=== PATIENT | male | born 1970 | race Caucasian/White ===

== ENCOUNTER 2020-06-27 08:35 | Emergency (ER) | payer OTHER, SELFPAY ==
--- NOTE | ~2020-06-27 | XR_ITS ---
EXAMINATION: [id number]_[id number]_CR EXAM DATE: 06/27/2020 09:12 INDICATION: Right rib pain after sneeze one week ago. Pain is persisting. Initial encounter. TECHNIQUE: Frontal projection of the upper right ribs, frontal projection of the lower right ribs, ob lique projection of the right ribs, frontal chest x-ray(s) for interpretation. There is no prior zoila dy for comparison. FINDINGS: Right 5th and 6th rib fractures posterolaterally appear to be old. There are no displaced a cute right rib fractures identified. There are no osteoblastic or osteolytic lesions identified. The re is no soft tissue abnormality seen. Linear left-sided basilar scarring. No confluent consolidation , pneumothorax or pleural effusion suspected. Consider educating patient that even if there is a radiographically occult nondisplaced rib fracture, there is no specific treatment other than to refrain from activity that prevents healing. IMPRESSION: No displaced right rib fractures. Reviewed, dictated and finalized at location A. MANAGER
[2020-06-27 08:44] VITALS: BP 160/95; PULSE 86; RESP 18; TEMP 36.3; O2SAT 100
[2020-06-27 10:28] LABS: Basophils Percent Auto 0.6 % (0.2-1.2); Eosinophils Absolute Auto 0.1 K/mm3 (0-0.3); Eosinophils Percent Auto 1.7 % (0-4.4); Hematocrit 44.4 % (42.0-52.0); Hemoglobin 15.2 g/dL (14.0-18.0); Immature Granulocyte Absolute 0.04 K/mm3 (0.00-0.031); Immature Granulocyte Percent A 0.6 % (0-0.5); Lymphocytes Absolute Auto 1.78 K/mm3 (0.9-3.2); Lymphocytes Percent Auto 27.7 % (18.3-44.2); Mean Corpuscular HGB Conc 34.2 g/dl (32-36); Mean Corpuscular Volume 87.6 fl (80-100); Mean Platelet Volume 10.8 fl (7.4-10.4); Monocytes Absolute Auto 0.5 K/mm3 (0.1-0.6); Monocytes Percent Auto 8.3 % (2.6-8.5); Neutrophils Absolute Auto 3.9 K/mm3 (1.3-6.7); Neutrophils Percent Auto 61.1 % (45.5-73.1); Platelet Count Result 258 k/mm3 (150-375); Red Blood Count 5.07 M/mm3 (4.6-6.20); Red Cell Distribution Width 13.5 % (11.5-14.5); White Blood Count 6.4 K/mm3 (4.5-10.0)
[2020-06-27] MEDS: KETOROLAC 30 MG/ML VIAL (*BKC) IV PUSH (10:28)
[2020-06-27 10:40] LABS: Alanine Aminotransferase 27 U/L (4-50); Albumin Level 4.3 g/dL (3.5-5.1); Alkaline Phosphatase 67 U/L (38-126); Anion Gap 7 mmol/L (8-16); Aspartate Amino Transferase 25 U/L (17-59); Bilirubin,Total 0.5 mg/dL (0.2-1.3); Blood Urea Nitrogen 16 mg/dL (9-20); Calcium 9.6 mg/dL (8.4-10.2); Carbon Dioxide 25 mmol/L (22-30); Chloride 106 mmol/L (98-107); Estimated CRCL calculation 104 ml/min; Estimated Glomerular Filt Rate > 60; Glucose 105 mg/dL (75-110); Lipase 55 U/L (23-300); Potassium 4.4 mmol/L (3.4-5.0); Sodium 138 mmol/L (137-145)
[2020-06-27 10:43] LABS: D Dimer 0.27 ug/mL (<0.48)
[2020-06-27 10:44] LABS: Add Urine Microscopic? NO; Appearance Urine Clear (Clear); Bilirubin Urine Negative (Negative); Blood Urine Negative (Negative); Color Urine Straw (Yellow); Glucose Urine UA Negative (Negative); Ketones Urine Negative (Negative); Leukocyte Esterase Ur Negative LEU/UL (Negative); Mucus Urine Rare /lpf; Nitrate Urine Negative (Negative); Protein Urine Negative (Negative); Specific Grav Ur 1.012 (1.001-1.035); Squamous Epithelial Cell Urine Rare /hpf (Few); Urobilinogen Urine Negative mg/dL (<2.0); WBC Urine 0-3 /hpf
--- NOTE | 2020-06-27 11:27 | ED.GENADULT ---
HPI - General Adult General Chief complaint: Unspecified Stated complaint: right rib pain Time Seen by Provider: 06/27/20 09:24 Source: patient Mode of arrival: ambulatory Limitations: no limitations History of Present Illness HPI narrative: This patient is a 50 year old male who presents for evaluation of right rib pain. PAtient states 6 days ago he has mild ache to his right lateral rib. His pain initially was mild and it would hurt with certain positions. He has been taking ibuprofen for his pain , and it was giving him relief. He sneezed on [place] and his pain has been more sever. He states ibuprofen is not helping his pain. He denies cough, shortness of breathing, fever, nausea, vomiting or abdominal pain. He denies pain worsening with eating. 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 HEAD: Normocephalic, atraumatic EYES: PERRLA and EOMI, conjunctiva clear without discharge THROAT:Mucous membranes moist, Oropharynx normal without erythema, exudate, peritonsillar swelling or fluctuance NECK: Supple, without lymphadenopathy or mass RESPIRATORY: No respiratory distress, Airway patent, Respirations non-labored, Clear to auscultation without rales, rhonchi or wheeze HEART: Regular rate and rhythm. No murmur heard. Normal peripheral pulses. ABDOMEN: Soft, nontender, nondistended, normal active bowel sounds. No masses. No rebound or guarding, No organomegaly. EXTREMITIES: No edema, normal strength with full range of motion. SKIN: Warm, dry, normal color without rash NEURO: Alert and oriented x3. CN 2-12 grossly intact. No focal deficits. PSYCH: Normal mood and affect. Chest: Chest palpation & inspection: tenderness rib (right lateral, lower) Course Reevaluation(s) Reevaluation #1: PAtient reports he feels better. I have discussed with patient labs are unremarkable. D dimer negative. I have informed him of old rib fractures and that rib fractures dont' always show up on xray. Date: 06/27/20 Time: 11:34 Vital Signs Vital signs: Vital Signs Temperature 97.3 F L 06/27/20 08:44 Pulse Rate 86 06/27/20 08:44 Respiratory Rate 18 06/27/20 08:44 Blood Pressure 160/95 H 06/27/20 08:44 Pulse Oximetry 100 06/27/20 08:44 Temperature 97.3 F L 06/27/20 08:44 Pulse Rate 86 06/27/20 08:44 Respiratory Rate 18 06/27/20 08:44 Blood Pressure 160/95 H 06/27/20 08:44 Pulse Oximetry 100 06/27/20 08:44 Medical Decision Making Vital Signs Vital Signs: Vital Signs Temperature 97.3 F L 06/27/20 08:44 Pulse Rate 86 06/27/20 08:44 Respiratory Rate 18 06/27/20 08:44 Blood Pressure 160/95 H 06/27/20 08:44 Pulse Oximetry 100 06/27/20 08:44 Temperature 97.3 F L 06/27/20 08:44 Pulse Rate 86 06/27/20 08:44 Respiratory Rate 18 06/27/20 08:44 Blood Pressure 160/95 H 06/27/20 08:44 Pulse Oximetry 100 06/27/20 08:44 Lab Data Lab results reviewed: Yes I reviewed the patient's lab results. Result diagrams: 06/27/20 10:20 06/27/20 10:20 Labs: Lab Results 06/27/20 06/27/20 06/27/20 Range/Units 10:20 10:20 10:20 WBC 6.4 (4.5-10.0)
== END 2020-06-27 11:30 | disposition home or self-care (01) ==
PROVIDERS: Emergency Provider General Practice
DX: R07.81 Pleurodynia (principal); F17.210 Nicotine dependence, cigarettes, uncomplicated
CPT/HCPCS: 36415; 71101; 80053; 81003; 83690; 85025; 85380; 96374; 99284; J1885

== ENCOUNTER → 2020-11-20 09:21 | Outpatient (CLI) | payer OTHER, SELFPAY ==
--- NOTE | ~2020-11-20 | XR_ITS ---
XR_[id number]_[id number] DATE: 11/20/2020 09:57 INDICATION: Left rib pain TECHNIQUE: Frontal chest radiograph. 3 views of the left ribs. COMPARISON: 06/27/2020 right ribs with PA chest FINDINGS: Prominent discoid atelectasis in both lower lung zones. Normal heart size. No hilar or mediastinal enlargement is evident. Aortic arch calcification. Old healed posterolateral right fifth and sixth rib fractures. There is a recent up to approximately 50% displaced lateral left ninth rib fracture. Diffuse osteopenia. IMPRESSION: Recent lateral left ninth displaced rib fracture Prominent discoid atelectasis in both lower lungs Reviewed, dictated and finalized at Location A. Reviewed, dictated and finalized at location B.
== END ==
DX: R07.81 Pleurodynia (principal); M62.830 Muscle spasm of back; S22.32XA Fracture of one rib, left side, initial encounter for closed fracture; J98.11 Atelectasis
CPT/HCPCS: 71101

== ENCOUNTER → 2020-12-23 13:28 | Outpatient (CLI) | payer OTHER, SELFPAY ==
--- NOTE | ~2020-12-23 | XR_ITS ---
[[id number] ] INDICATION: 11/20/2020 TECHNIQUE: Frontal projection of the upper ribs, frontal projection of the lower ribs, oblique projec tion of all the ribs, frontal inspiratory chest x-ray for interpretation. FINDINGS: There is a healing right eighth rib fracture. There is bibasilar atelectasis. There is a estevez bacute left ninth rib fracture. There are no soft tissue abnormality seen. The lungs are clear. No pneumothorax. IMPRESSION: 1: Healing right eighth rib fracture with callus formation. 2: Subacute left ninth rib fracture without significant callus formation. 3: Bibasilar atelectasis. Reviewed, dictated and finalized at location B.
== END ==
PROVIDERS: PCP Nurse Practitioner; Visit Provider Nurse Practitioner
DX: S22.31XD Fracture of one rib, right side, subsequent encounter for fracture with routine healing (principal); S22.31XA Fracture of one rib, right side, initial encounter for closed fracture
CPT/HCPCS: 71111

== ENCOUNTER 2021-01-08 12:35 | Emergency (ER) | payer OTHER, SELFPAY ==
--- NOTE | ~2021-01-08 | XR_ITS ---
EXAMINATION: XR chest 2V EXAM DATE: 01/08/2021 13:27 INDICATION: hx rib fxs, rib pain, left side pain. TECHNIQUE: Frontal and lateral projections of the chest obtained and reviewed. Correlation is made to preoperative examination last month. FINDINGS: Some scattered bibasilar linear atelectasis. Difficult to identify the previously describe d subacute left 9th rib fracture. No confluent consolidation, pneumothorax or pleural effusion suspec walter. IMPRESSION: 1. Scattered bibasilar linear atelectasis. Reviewed, dictated and finalized at location B.
[2021-01-08 12:52] VITALS: BP 173/91; PULSE 99; RESP 20; TEMP 37.1; O2SAT 99
--- NOTE | 2021-01-08 15:23 | ED.GENADULT ---
HPI - General Adult General Chief complaint: Trauma Stated complaint: rib pain since 06/26 Time Seen by Provider: 01/08/21 13:54 Source: patient Mode of arrival: ambulatory Limitations: no limitations History of Present Illness HPI narrative: Patient is a 50-year-old male who presents complaining of left-sided rib pain. Patient reports intermittent pain to bilateral ribs x 6+ months. Patient reports increased pain to left ribs after fall on grass approximately 5 days ago. Patient reports he is scheduled for a CT scan on 01/14. Patient denies chest pain or shortness of breath at this time. He reports increased pain with movement to left ribs as well as pain with palpation. He denies significant medical history. He reports that he was recently prescribed tramadol but was unable to take because of [employer] license. MD complaint: Rib pain Related Data Allergies Allergy/AdvReac Type Severity Reaction Status Date / Time codeine AdvReac Fever Verified 01/08/21 12:59 Review of Systems Review of Systems: Narrative: CONSTITUTIONAL: Denies fever, chills, or sweats. EYES: Denies visual changes, redness, or discharge. ENT: Denies rhinorrhea, congestion, sore throat, or otalgia. CARDIOVASCULAR: Denies chest pain, palpitations, or edema. RESPIRATORY: Denies cough or dyspnea. GASTROINTESTINAL: Denies abdominal pain, nausea, vomiting, or diarrhea. GENITOURINARY: Denies dysuria or hematuria. SKIN: Denies rash or itching. MUSCULOSKELETAL: Reports left rib pain NEUROLOGIC: Denies headache, numbness, dizziness, or weakness. PSYCHIATRIC: Denies anxiety or depression. 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 Please see nursing chart for further information. There is no relevant family history pertinent to the presenting complaint. Exam Narrative: Exam Narrative: GENERAL: Well-appearing, well-nourished, and in no acute distress. HEAD: Normocephalic, atraumatic. EYES: EOMI. No redness or drainage. ENT: Mucous membranes pink and moist. NECK: AROM. Supple. No lymphadenopathy. CHEST: No respiratory distress. Clear to auscultation. HEART: Regular rate and rhythm. GI: Soft, nontender without rebound, or guarding. No distention. Bowel sounds normal in all quadrants. MUSCULOSKELETAL: Tenderness with palpation to left ribs EXTREMITIES: Normal range of motion. No edema. SKIN: Warm, dry, no rash. NEURO: No focal deficits. Alert and oriented x3. Gait steady. PSYCH: Normal affect. No signs of depression or anxiety. Course Vital Signs Vital signs: Vital Signs Temperature 37.1 C 01/08/21 12:52 Pulse Rate 99 01/08/21 12:52 Respiratory Rate 20 01/08/21 12:52 Blood Pressure 173/91 H 01/08/21 12:52 Pulse Oximetry 99 01/08/21 12:52 Temperature 37.1 C 01/08/21 12:52 Pulse Rate 99 01/08/21 12:52 Respiratory Rate 20 01/08/21 12:52 Blood Pressure 173/91 H 01/08/21 12:52 Pulse Oximetry 99 01/08/21 12:52 Reviewed. Patient has been instructed to follow-up with his PCP regarding his blood pressure. Medical Decision Making MDM Narrative Medical decision making narrative: X-ray of patient's ribs are unremarkable. Patient declined CT scan as one is sched
[2021-01-08] MEDS: KETOROLAC (*BKC) 60 MG/2 ML VIAL IM (15:45)
[2021-01-08 15:50] VITALS: BP 155/93; PULSE 85; RESP 16; O2SAT 98
== END 2021-01-08 15:50 | disposition home or self-care (01) ==
PROVIDERS: Emergency Provider Nurse Practitioner; PCP Nurse Practitioner
DX: R07.81 Pleurodynia (principal); F17.210 Nicotine dependence, cigarettes, uncomplicated; R03.0 Elevated blood-pressure reading, without diagnosis of hypertension
CPT/HCPCS: 71046; 96372; 99283; J1885

== ENCOUNTER 2021-07-20 11:24 | Emergency (ER) | payer OTHER, SELFPAY ==
[2021-07-20 12:07] VITALS: BP 183/99; PULSE 112; RESP 24; TEMP 36.1; O2SAT 98
[2021-07-20 14:32] VITALS: BP 188/111; PULSE 111; TEMP 36.4; O2SAT 97
== END 2021-07-20 15:10 | disposition left against medical advice (07) ==
LOC: ANHED 15:25
PROVIDERS: PCP Nurse Practitioner
DX: R07.81 Pleurodynia (principal)
CPT/HCPCS: 99199

== ENCOUNTER 2021-07-21 01:57 | Emergency (ER) | payer OTHER, SELFPAY ==
--- NOTE | ~2021-07-21 | XR_ITS ---
XR ribs RT 2V w CXR 2V DATE: 07/21/2021 06:17 INDICATION: Right chest pain. Cough. TECHNIQUE: PA and lateral chest. 4 views of the right ribs. COMPARISON: 01/08/2021 2 view chest FINDINGS: Multiple old healed right rib fractures including lateral right fifth, sixth, eighth and ni nth ribs. More recent posterolateral right seventh rib is noted since 01/08/2021; this may be acute or subacute. There are bilateral lower lung infiltrates, atelectasis and/or fibrotic change, increased since 021. Heart size is normal. Mild aortic arch calcification. No pleural effusion or pulmonary vascular conge stion or pneumothorax. Diffuse osteopenia. IMPRESSION: Multiple old right rib fractures More recent or subacute posterior lateral right seventh rib since 01/08/2021 Bilateral lower lung infiltrate, atelectasis and/or fibrotic change, increased since 01/18/2021 Reviewed, dictated and finalized at location A. T MANAGER
[2021-07-21 02:01] VITALS: BP 172/103; PULSE 103; RESP 18; TEMP 36.5; O2SAT 97
[2021-07-21 05:02] VITALS: O2SAT 98
[2021-07-21 05:07] VITALS: BP 154/104; PULSE 94; RESP 16; O2SAT 98
[2021-07-21] MEDS: KETOROLAC (*BKC) 60 MG/2 ML VIAL IM (06:09)
--- NOTE | 2021-07-21 06:11 | PC.NURSE ---
Pt to imaging at this time.
[2021-07-21 06:40] VITALS: BP 144/91; PULSE 95; RESP 16; O2SAT 96
--- NOTE | 2021-07-21 06:41 | ED.GENADULT ---
HPI - General Adult General Chief complaint: Unspecified Stated complaint: rib pain Time Seen by Provider: 07/21/21 05:19 History of Present Illness HPI narrative: Patient is a 51-year-old male who presents ER with right-sided rib pain. Sudden onset tonight. Occurred after coughing. Has history of nagging rib pain on the right and left side but usually on the right. He has had multiple CT scans and x-rays. Denies fevers or chills or sweats. Reports she does have persistent cough due to the fact that he is a smoker. No recent trauma. No additional concerns. Has not tried any pain medication outside of ibuprofen and tramadol. He would like some muscle relaxers which usually help his discomfort and he is out of his flex Related Data Allergies Allergy/AdvReac Type Severity Reaction Status Date / Time codeine AdvReac Fever Verified 07/21/21 05:07 Review of Systems Review of Systems: All systems reviewed & are unremarkable except as noted in HPI and below Constitutional: Constitutional: Denies chills and Denies fever(s) Cardiovascular: Cardiovascular: Reports chest pain, Denies radiating jaw, neck or arm pain and Denies palpitations Respiratory: Respiratory: Reports cough and Denies dyspnea Gastrointestinal: Gastrointestinal: Denies abdominal pain, Denies nausea and Denies vomiting PMFSH Past Medical History Medical History Osteomyelitis Surgical History Surgical History No pertinent past surgical history Social History Social History (Updated 01/08/21 @ 15:26 by Miryam Islas, ROXANNA) Smoking packs per day: 2 Smoking cigarettes per day: 40.0 Smoking status: Current every day smoker Alcohol intake: current Alcohol use details: Occasional Substance use: never 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 HEAD: Normocephalic, atraumatic. CHEST: Clear to auscultation on the right, rhonchi that clears with cough at the left base. No respiratory distress. Tender right lateral chest wall mid axillary line at the level of T8 HEART: Regular rate and rhythm. Normal peripheral pulses. ABDOMEN: Soft, nontender, nondistended, normal active bowel sounds. EXTREMITIES: Normal range of motion. No edema. SKIN: Warm, dry, no rash. NEURO: Alert and oriented x3. PSYCH: Normal mood and affect. Course Course Emergency Course: Patient informed of results. Discharged with Flexeril and albuterol as well as azithromycin. Follow-up with PCP. Vital Signs Vital signs: Vital Signs Temperature 97.7 F 07/21/21 02:01 Pulse Rate 103 H 07/21/21 02:01 Respiratory Rate 18 07/21/21 02:01 Blood Pressure 172/103 H 07/21/21 02:01 Pulse Oximetry 97 07/21/21 02:01 Temperature 97.7 F 07/21/21 02:01 Pulse Rate 94 07/21/21 05:07 Respiratory Rate 16 07/21/21 05:07 Blood Pressure 154/104 H 07/21/21 05:07 Pulse Oximetry 98 07/21/21 05:07 Medical Decision Making Vital Signs Vital Signs: Vital Signs Temperature 97.7 F 07/21/21 02:01 Pulse Rate 103 H 07/21/21 02:01 Respiratory Rate 18 07/21/21 02:01 Blood Pressure 172/103 H 07/21/21 02:01 Pulse Oximetry 97 07/21/21 02:01 Temperature 97.7 F 07/21/21 02:01 Pulse Rate 94 07/21/21 05:07 Respiratory Rate 16 07/21/21 05:07 Blood Pressure 154/104 H 07/21/21 05:07 Pulse Oximetry 98 07/21/21 05:07 Imaging Data My impression: Chest x-ray with right-sided rib films: No acute fracture. Left lower lobe infiltrate concerning for pneumonia. Discharge Plan Discharge Clinical Impression: Pneumonia, Acute chest wall pain Patient Disposition: Home, Self-Care Condition: Stable Instructions: Chest Pain (ED), Pneumonia (ED) Additional Instructio
== END 2021-07-21 06:52 | disposition home or self-care (01) ==
PROVIDERS: Emergency Provider Emergency Medicine; PCP Internal Medicine
DX: J18.9 Pneumonia, unspecified organism (principal); F17.210 Nicotine dependence, cigarettes, uncomplicated; R07.89 Other chest pain
CPT/HCPCS: 71046; 71100; 96372; 99283; J1885

== ENCOUNTER 2021-09-02 09:02 | Outpatient (CLI) | payer OTHER, SELFPAY ==
--- NOTE | ~2021-09-02 | PE_ITS ---
EXAMINATION: PET skull to mid thigh DATE: 09/02/2021 12:51 INDICATION: Lung nodules. TECHNIQUE: Blood glucose level was 124 mg/dL. 10.186 mCi of 18-fluorodeoxyglucose (18-FDG) was admini stered i.v. Low dose computed tomography (CT) images were acquired from the base of the brain to the proximal thighs for attenuation correction and anatomic localization. Automated exposure control was employed. Dose-length product (DLP) was 1022 mGy-cm. Positron emission tomography (PET) images were a cquired in the same distribution. COMPARISON: None FINDINGS: Head/neck: There is increased activity in the pharynx, oral cavity, and glottis without abnormal CT c orrelate, likely physiologic. There are no pathologically enlarged lymph nodes. Chest: There is mild emphysema. There is mild atelectasis bilaterally. There are a few scattered pulm onary nodules measuring up to 6 mm without increased activity. There is an 7 mm nodule in right upper lobe without increased activity. No pleural effusion. The heart size is normal. No pericardial effus ion. There is a healing fracture of right seventh rib with increased activity. Abdomen/pelvis/proximal thighs: There is diffuse hepatic steatosis. The gallbladder, spleen, pancreas , adrenal glands, and kidneys are normal. There are no dilated loops of bowel. The appendix is normal . There is a small sliding hiatal hernia. There are no pathologically enlarged lymph nodes. There is no free intraperitoneal fluid. There are benign bone islands in proximal right femur and left parasym physeal pubis. IMPRESSION: 1. Pulmonary nodules measuring up to 7 mm without increased activity, probably benign. Noncontrast lo w-dose chest CT is recommended in 6 months. Reviewed, dictated and finalized at location A. ESSIONAL BONDSMAN IMPRESSION: 1. Pulmonary nodules measuring up to 7 mm without increased activity, probably benign. Noncontrast low-dose chest CT is recommended in 6 months.
[2021-09-02 09:29] LABS: Glucose Point of Care 124 mg/dl (65-105)
== END 2021-09-02 09:03 | disposition home or self-care (01) ==
LOC: ANHIMG 09:07
PROVIDERS: PCP Internal Medicine; Visit Provider Internal Medicine Pulmonary Disease
DX: R91.1 Solitary pulmonary nodule (principal)
CPT/HCPCS: 78815; A9552

== ENCOUNTER 2021-11-12 04:29 | Inpatient (IN) | payer OTHER, SELFPAY ==
[2021-11-12] VITALS (23 sets, daily range): BP systolic 125–193; BP diastolic 59–97; PULSE 71–98; RESP 15–23; TEMP 36.6–37.3; O2SAT 96–100; BMI 30.5
--- NOTE | 2021-11-12 | ECHO_ITS ---
Patient Info Name: Chong Prakash Age: 51 years : 1970 Gender: Male Ht: 72 in Wt: 226 lbs BSA: 2.31 m2 HR: 80 bpm BP: 145 / 84 mmHg Heart Rhythm: Sinus Rhythm Technical Quality: Fair Exam Date: 11/12/2021 11:26 AM Exam Location: [facility] Patient Status: Outpatient Admit Date: 11/12/2021 Staff Ordering Physician: Shane Espinosa DO Construction Administrative Assistant: Jess Prasad RDCS Attending Provider: Bonnie Mireles DO Referring Physician: Jesús ERICKSON; Exam Type: CA echo doppler color flow Study Info Indications - cp Complete two-dimensional, color flow and Doppler transthoracic echocardiogram is performed. Summary 1. Complete two-dimensional, color flow and Doppler transthoracic echocardiogram is performed. 2. Left ventricular chamber dimension is normal. 3. Left ventricular systolic function is normal, estimated at 60-65%. 4. The left ventricular diastolic function is grade II diastolic dysfunction. 5. E/e' 9 is minimally elevated. 6. There is trace tricuspid valve regurgitation. 7. No pulmonary hypertension, estimated pulmonary arterial systolic pressure is 21 mmHg. Left Ventricle E/e' 9 is minimally elevated. Left ventricular chamber dimension is normal. Left ventricular systolic function is normal, estimated at 60-65%. The left ventricular diastolic function is grade II diastolic dysfunction. Right Ventricle Right ventricular chamber dimension is normal. Right ventricular systolic function is normal. Left Atria Left atrial chamber dimension is normal. Right Atria Right atrial chamber dimension is normal. Aortic Valve The aortic valve is trileaflet. There is no aortic valve stenosis. There is no aortic valve regurgitation. Pulmonic Valve There is no pulmonic regurgitation. Mitral Valve There is no mitral valve stenosis. There is no mitral valve regurgitation. Tricuspid Valve There is trace tricuspid valve regurgitation. No pulmonary hypertension, estimated pulmonary arterial systolic pressure is 21 mmHg. Pericardium/Pleural There is no pericardial effusion. Inferior Vena Cava Normal inferior vena cava with >50% collapse upon inspiration consistent with normal right atrial pressure, 5 mmHg. Aorta The aortic root size at the sinus of Valsalva is normal. Left Ventricular Outflow Tract Name Value Normal LVOT 2D LVOT Diameter 2.0 cm LVOT Doppler LVOT Peak Gradient 4 mmHg LVOT Mean Gradient 1 mmHg LVOT VTI 17 cm LVOT VTI/AV VTI Ratio 0.8 LVOT Stroke Volume 57 ml LVOT CO 3.9 l/min LVOT CI 1.7 l/min/m2 Pulmonic Valve Name Value Normal RVOT Doppler RVOT Peak Gradient 2 mmH
--- NOTE | ~2021-11-12 | XR_ITS ---
EXAMINATION: XR chest 2V DATE: 11/12/2021 05:03 INDICATION: Chest pain TECHNIQUE: PA and lateral views of the chest are obtained. COMPARISON: 07/21/2021 FINDINGS: There is mild atelectasis of the lung bases. The lungs are free of acute opacities. There i s no pleural effusion or pneumothorax. The cardiomediastinal silhouette is normal. There is mild thor acic spondylosis. IMPRESSION: 1. No acute cardiopulmonary abnormality. Reviewed, dictated and finalized at location A.
--- NOTE | 2021-11-12 04:40 | ECG_ITS ---
Measurements Intervals [place] Rate: 92 P: 36 NM: 181 QRS: -20 QRSD: 102 T: 13 QT: 356 QTc: 440 Interpretive Statements SINUS RHYTHM VOLTAGE CRITERIA FOR LVH BORDERLINE T WAVE ABNORMALITY- INFERIOR LEADS BORDERLINE ECG Electronically Signed On 11-12-2021 6:34:18 CDT by Shane Espinosa D.O.
[2021-11-12 05:02] LABS: Basophils Absolute Auto 0.1 K/mm3 (0.0-0.1); Basophils Percent Auto 0.7 % (0.2-1.2); Eosinophils Absolute Auto 0.2 K/mm3 (0-0.3); Eosinophils Percent Auto 1.8 % (0-4.4); Hematocrit 46.1 % (42.0-52.0); Hemoglobin 15.1 g/dL (14.0-18.0); Immature Granulocyte Absolute 0.11 K/mm3 (0.00-0.031); Immature Granulocyte Percent A 1.3 % (0-0.5); Lymphocytes Absolute Auto 2.05 K/mm3 (0.9-3.2); Lymphocytes Percent Auto 24.6 % (18.3-44.2); Mean Corpuscular HGB Conc 32.8 g/dl (32-36); Mean Corpuscular Hemoglobin 29.2 pg (26-34); Mean Corpuscular Volume 89.2 fl (80-100); Mean Platelet Volume 11.4 fl (7.4-10.4); Monocytes Absolute Auto 0.8 K/mm3 (0.1-0.6); Monocytes Percent Auto 9.1 % (2.6-8.5); Neutrophils Absolute Auto 5.2 K/mm3 (1.3-6.7); Neutrophils Percent Auto 62.5 % (45.5-73.1); Platelet Count Result 232 k/mm3 (150-375); Red Blood Count 5.17 M/mm3 (4.6-6.20); Red Cell Distribution Width 13.9 % (11.5-14.5); White Blood Count 8.3 K/mm3 (4.5-10.0)
[2021-11-12 05:12] LABS: Prothrombin Time 12.5 Seconds (11.1-14.7)
[2021-11-12 05:13] LABS: Partial Thromboplastin Time 30.7 SECONDS (22.3-36.8)
[2021-11-12 05:14] LABS: Alanine Aminotransferase 52 U/L (6-50); Albumin Level 4.4 g/dL (3.5-5.1); Alkaline Phosphatase 110 U/L (38-126); Anion Gap 9 mmol/L (8-16); Aspartate Amino Transferase 35 U/L (17-59); Bilirubin,Total 0.4 mg/dL (0.2-1.3); Blood Urea Nitrogen 16 mg/dL (9-20); Calcium 9.6 mg/dL (8.4-10.2); Carbon Dioxide 19 mmol/L (22-30); Chloride 110 mmol/L (98-107); Estimated CRCL calculation 132 ml/min; Estimated Glomerular Filt Rate > 60; Glucose 150 mg/dL (65-110); Lipase 74 U/L (23-300); Potassium 4.2 mmol/L (3.4-5.0); Sodium 138 mmol/L (137-145)
[2021-11-12 05:24] LABS: Troponin I < 0.012 ng/mL (0.000-0.034)
--- NOTE | 2021-11-12 05:35 | ED.CHESTPAIN ---
HPI - Chest Pain General Chief Complaint: Chest Pain <Yuliya Villavicencio MD - Last Filed: 11/12/21 07:27> Stated Complaint: CHEST PAIN <Yuliya Villavicencio MD - Last Filed: 11/12/21 07:27> Time Seen by Provider: 11/12/21 05:07 <Yuliya Villavicencio MD - Last Filed: 11/12/21 07:27> History of Present Illness HPI narrative: 51-year-old male states that for the last 2 days has been having some intermittent chest pain, however about an hour prior to arrival here while going to bathroom he started having severe chest pressure that is substernal, radiates to his jaw and bilateral arms, he was concerned enough to come in. Some nausea without vomiting, no diaphoresis, some cough and difficulty breathing but states that this is chronic from his smoking. No cardiac history. <Yuliya Villavicencio MD - Last Filed: 11/12/21 07:27> Related Data Allergies/Adverse Reactions: Allergies Allergy/AdvReac Type Severity Reaction Status Date / Time codeine AdvReac Fever Verified 07/21/21 05:07 <Yuliya Villavicencio MD - Last Filed: 11/12/21 07:27> Review of Systems Review of Systems: All systems reviewed & are unremarkable except as noted in HPI and below <Yuliya Villavicencio MD - Last Filed: 11/12/21 07:27> PMFSH Past Medical History Medical History: Medical History Osteomyelitis <Yuliya Villavicencio MD - Last Filed: 11/12/21 07:27> Surgical History Surgical History: Surgical History No pertinent past surgical history <Yuliya Villavicencio MD - Last Filed: 11/12/21 07:27> Social History Social History: Social History Smoking packs per day: 2 Smoking cigarettes per day: 40.0 Smoking status: Current every day smoker Alcohol intake: current Alcohol use details: Occasional Substance use: never 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 EYES: EOMI, conjunctiva normal ENT: Hearing grossly intact LUNGS: Nonlabored breathing. Clear lung sounds bilaterally. HEART: [Regular rate and rhythm] ABD: [Soft], [nontender to palpation] EXT: Normal range of motion, equal pulses bilateral upper and lower extremities SKIN: [No rashes or lesions.] NEURO: [Alert and oriented x 3. No gross focal sensory or strength deficits.] PSYCH: Normal affect <Yuliya Villavicencio MD - Last Filed: 11/12/21 07:27> Course Course Emergency Course: ED COURSE AND MEDICAL DECISION MAKIN-year-old male presenting with chest pain. Cardiac workup is initiated. EKG: Performed in triage and interpreted by me. Normal sinus rhythm. Rate 92. Normal axis. CT normal. QRS duration normal. QTc normal. No pathologic Q waves. No ST segment elevation or depression to suggest acute ischemia. No RV strain pattern. Differential includes ACS/WA, less likely PE without any new difficulty breathing and normal heart rate and pulse ox here, presentation not consistent with dissection or aneurysm without neuro or pulse deficits or complaints. Patient was already given aspirin by EMS. Initial troponin was negative, HEART score is 3, and given onset of symptoms I will obtain a second troponin and disposition him after this. Patient signed out to oncoming ER physician Dr. Og pending second troponin. <Yuliya Villavicencio MD - Last Filed: 11/12/21 07:27> Patient resting comfortably but still having 3/10 chest pain. Second troponin elevated. Contacted Dr. Espinosa with cardiology who recommends heparinization. Will admit to hospitalist service. Patient's blood pressure currently 129/68 mmHg. <Lev Og MD - Last Filed:
[2021-11-12 08:53] LABS: Troponin I 0.043 ng/mL (0.000-0.034)
--- NOTE | 2021-11-12 09:19 | PM.CNCAR ---
Assessment and Plan Assessment and plan (1) Chest pain: Code(s): R07.9 - Chest pain, unspecified Status: Acute Assessment and Plan: Probably due to NSTEMI. Risk factors including smoking, family history. (2) Tobacco abuse: Code(s): Z72.0 - Tobacco use Status: Acute Assessment and Plan: Counseled regarding smoking cessation. (3) Non-ST elevation [place] (NSTEMI): Code(s): I21.4 - Non-ST elevation (NSTEMI) myocardial infarction Status: Acute Assessment and Plan: Aspirin, heparin drip. Check Lipid panel. Obtain echo. Trend troponin. Start Atorvastatin 80 mg daily. Monitor BP if OK, start beta nicole. NTG for pain prn. Discuss risks/benefits/alternative treatment to left heart cath and he is agreeable to it. Will notify HCG to see if can be done today as today is Monday. History of Present Illness History of Present Illness Consult date/time: 11/12/21 09:19 Reason for consult: CP. 51 yr old man presented to ER via EMS last night for chest pain. He has a history of COPD, smoking 2 ppd and family history of his father with CAD/CABG. Reports he has been having intermittent chest pressure with radiation to jaw and both arms for last 3 days. Last night when he was getting into bed he had 8/10 chest pressure that he called EMS and was given aspirin. It comes and goes and currently at 2/10 CP. States that walking or activity would make chest pain worse. Normally can only walk 1 block due to V[place]LE[place]. EKG shows sinus rhythm with LVH and borderline T wave in inferior leads. Troponin was 0 then .043. CXR is normal. CBC and CMP are OK. Reason For Visit: CHEST PAIN Review of Systems Review of Systems: All systems reviewed & are unremarkable except as noted in HPI and below Constitutional: Constitutional: Reports as per HPI, Denies chills and Denies fever(s) Cardiovascular: Cardiovascular: Reports as per HPI, Reports chest pain, Denies leg edema and Denies lightheadedness Respiratory: Respiratory: Reports as per HPI and Reports dyspnea on exertion Gastrointestinal: Gastrointestinal: Reports as per HPI and Denies abdominal pain Genitourinary: Genitourinary: Reports as per HPI and Denies dysuria Musculoskeletal: Musculoskeletal: Reports as per HPI Neurologic: Reports as per HPI, Denies dizziness and Denies syncope PMFSH Past Medical History Medical History Osteomyelitis Surgical History Surgical History No pertinent past surgical history Social History Social History Smoking packs per day: 2 Smoking cigarettes per day: 40.0 Smoking status: Current every day smoker Alcohol intake: current Alcohol use details: Occasional Substance use: never 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 Gender identity (if verbalized by the patient): Male Meds Home Medications and Allergies Home Medications Medication Instructions Recorded Confirmed Type ketorolac 10 mg PO Q6H PRN #10 tablet 06/27/20 Rx cyclobenzaprine 10 mg PO TID PRN #20 tablet 01/08/21 Rx ibuprofen 800 mg PO TID PRN #20 tablet 01/08/21 Rx albuterol sulfate 2 puff INHALATION QID PRN #8 gm 07/21/21 Rx azithromycin See Rx Instructions .ROUTE 07/21/21 Rx .COMPLEX #6 tablet cyclobenzaprine 10 mg PO TID PRN #20 tablet 07/21/21 Rx Allergies Allergy/AdvReac Type Severity Reaction Status Date / Time codeine AdvReac Fever Verified 07/21/21 05:07 Vital Signs Vital Signs - 24 hr 11/12/21 04:33 11/12/21 04:48 11/12/21 07:15 Temperature 98.1 F Pulse Rate 98 87 77 Respiratory Rate 23 H 18 Blood Pressure 193/97 H 140/59 L Pulse Oximetry 100 96 11/12/21 08:16 11/12/21 08:31 11/12/21 08:46 Temperature Pulse Rate 96 77 89 Respiratory Rate 16 16 19 Blood Pressure 131/69 134/68 129/68 Pulse Oximetry 100 98 100
[2021-11-12] MEDS: HEPARIN SODIUM 5,000 UNITS/ML VIAL 4000 UNITS IV PUSH ×2 (09:37→15:32)
[2021-11-12] MEDS: HEPARIN SOD/D5W 100 UNITS/ML 25,000 UNITS/250 ML BAG 10 UNITS IV CONT (09:38)
[2021-11-12 10:18] LABS: Cholesterol 216 mg/dL (0-200); HDL Direct 23 mg/dL; Triglycerides 477 mg/dL (<150)
[2021-11-12 10:29] LABS: LDL Cholesterol Direct 135 mg/dL
--- NOTE | 2021-11-12 10:30 | ADMGEN ---
This patient, Chong Prakash, was admitted to IMU Room 209-01. Patient/family oriented to hospital policies and general routines including ID bracelet, bed and alarms, visiting hours, pain management, procedures, bathroom and other care routines, personal items, smoking policy, room service/diet, and visiting hours. Information on how to activate the Rapid Response Team has been discussed. Patient/Family are encouraged to report perceived risks to care and to ask questions if they do not understand what they are told or what they should do.
[2021-11-12 11:20] LABS: Troponin I 0.038 ng/mL (0.000-0.034)
--- NOTE | 2021-11-12 11:53 | WPDMODSED ---
Moderate Sedation Note-Pt Data Patient Data Diagnosis: Chest pain Present Complaint: Intermittent chest pain radiating to the jaw Procedure to be performed/Plan: Left heart catheterization Allergies Allergy/AdvReac Type Severity Reaction Status Date / Time codeine AdvReac Fever Verified 07/21/21 05:07 Home Medications Medication Instructions Recorded Confirmed Type cyclobenzaprine 10 mg PO TID PRN #20 tablet 01/08/21 11/12/21 Rx albuterol sulfate 2 puff INHALATION QID PRN #8 gm 07/21/21 11/12/21 Rx ibuprofen 600 mg PO TID PRN 11/12/21 11/12/21 History aw-cp-fpzzk-lutein-herbal 293 1 tablet PO DAILY 11/12/21 11/12/21 History [Alive Men's 50 Plus Multivit] Current Medications: Active Medications Heparin Sodium (Porcine) (Heparin Sodium 5,000 Units/Ml Vial) 4,000 units IV PUSH PRN PRN PRN Reason: aPTT less than 55 seconds Heparin Sodium (Porcine) (Heparin Sodium 5,000 Units/Ml Vial) 3,500 units IV PUSH PRN PRN PRN Reason: aPTT 55 - 70 seconds Heparin Sodium/Dextrose (Heparin Sodium/D5w 100 Units/Ml) 25,000 units in 250 mls @ 10 mls/hr IV CONT .Q24H MEERA; Protocol Last Admin: 11/12/21 09:38 Dose: 1,000 units/hr, 10 mls/hr Documented by: Morphine Sulfate (Morphine Sulfate (*Crx) 4 Mg/Ml Inj) 4 mg IV PUSH Q2H PRN PRN Reason: Pain Rated 7-10 Ondansetron HCl (Ondansetron Inj 4 Mg/2 Ml Vial) 4 mg IV PUSH Q4H PRN PRN Reason: Nausea Perflutren Lipid Microsphere (Perflutren Lipid Microspheres 1.5 Ml Vial Diluted To 10 Ml Total Volume) 0 ml IV PUSH ONCE PRN; Protocol PRN Reason: adequate visualization Sedation/Anesthesia: No previous sedation/anesthesia problems (including family history). [facility] Past Medical History Medical History Osteomyelitis Surgical History Surgical History No pertinent past surgical history Family History Family History (Updated 11/12/21 @ 10:37 by Aleisha Haywood RN) Sibling Diabetes mellitus Father Diabetes mellitus Dementia Myocardial infarction Mother Lung cancer Social History Social History Smoking packs per day: 2 Smoking cigarettes per day: 40.0 Years smoked: 37 Smoking pack-years: 74.00 Smoking status: Current every day smoker Tobacco type: cigarettes Alcohol intake: current Drinks per week: 1 Alcohol use details: Occasional Substance use: never 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 Gender identity (if verbalized by the patient): Male Spiritual care concerns: No Mod Sed Physical Exam Physical Exam Pre Procedural Exam: Normal: Appearance, Neck, Throat, Airway, Lungs, Heart Size, Heart Rate, Heart Rhythm, Neuro Exam and Extremities Hours since solid foods: 12 Hours since liquid intake: 12 Mallampati Classification: class II Internal Medicine - PN: Obj Da Vital Signs Vital Signs: Vital Signs - 24 hr 11/12/21 04:33 11/12/21 04:48 11/12/21 07:15 Temperature 36.7 C Pulse Rate 98 87 77 Respiratory Rate 23 H 18 Blood Pressure 193/97 H 140/59 L Pulse Oximetry 100 96 11/12/21 08:16 11/12/21 08:31 11/12/21 08:46 Temperature Pulse Rate 96 77 89 Respiratory Rate 16 16 19 Blood Pressure 131/69 134/68 129/68 Pulse Oximetry 100 98 100 11/12/21 09:46 11/12/21 10:01 11/12/21 10:43 Temperature 36.7 C Pulse Rate 85 81 80 Respiratory Rate 18 17 20 Blood Pressure 158/70 H 135/74 145/84 H Pulse Oximetry 100 99 100 Meds/Results Medications: Active Medications Generic Name Dose Route Start Last Admin Trade Name Freq PRN Reason Stop Dose Admin Heparin Sodium (Porcine) 4,000 units 11/12/21 09:26 Heparin Sodium 5,000 Units/Ml Vial IV PUSH PRN PRN aPTT less than 55 seconds Heparin Sodium (Porcine) 3,500 units 11/12/21 09:26 Heparin Sodium 5,000 Units/Ml Vial IV PUSH PRN PRN aPTT 55 - 70 seconds Manny
--- NOTE | 2021-11-12 13:23 | P.PCNCC_ITS ---
Cardiac Cath Procedure Note Date of procedure:: 11/12/21 Performing physician:: Genaro Kraft MD Indication:: Chest pain, acute coronary syndrome Brief clinical history:: this is a 51-year-old man who has been having exertional chest discomfort of recent onset. He has a longstanding history of smoking. Upon admission to the hospital ECG looks normal very small rise in troponin prompting recommendation to perform angiography. Procedure Procedure performed:: Left ventriculogram coronary angiogram Angio-Seal to right femoral artery Sedation/Medication given:: fentanyl 50 mg Versed 2 mg case start time 12:57 p.m. case end time 13 14 p.m. Access site:: right femoral artery Estimated blood loss:: 25 cc Procedure note:: patient was brought to the cardiac catheterization lab in the post the right femoral triangle was prepared and draped in the normal fashion. Anesthesia provided with 1% lidocaine infiltrated locally. Using the modified Seldinger technique a 5 Marshallese sheath was placed into the right femoral artery after this left heart catheterization was carried out. I used a 5 Marshallese angled pigtail catheter to document left-sided hemodynamics as well as to inject LV g in the are a projection this I used a 5 Marshallese FL4 catheter to engage and inject the left coronary artery and then a 5 Marshallese JR4 catheter to engage and inject the right coronary artery. The cine angiograms were then reviewed and the case was terminated an angiogram was done of the femoral artery through the sheath after which a 6 Marshallese Angio-Seal device was used to provide hemostasis. Procedure was uncomplicated and well tolerated there was no evidence of a groin hematoma when he left the cardiac catheterization lab. Findings:: Hemodynamics: Central aortic pressure is 178/88. Left ventricle 180 over 5 end-diastolic 16. No gradient on pullback across the aortic valve Left ventricle: The left ventricle is normal in size all segments contract appropriately the global ejection fraction of visually estimated to be 55%. The left main coronary artery is nicely patent the left anterior descending is a medium caliber artery has proximally mild luminal irregularities in the midportion of the LAD there is a more discrete 80% stenosis. Circumflex is a moderate caliber artery giving rise to 3 marginal branches. There is about 70-80% stenosis in the trunk of the circumflex just after the origin of the vessel. It is an eccentric lesion. The 1st OM is a very proximal vessel that is quite large this has an 80-90% proximal stenosis. the remainder of the circumflex is mildly diffusely diseased with luminal irregularities in all segments. The right coronary artery is Large in caliber and dominant to the posterior circulation. The proximal / ostial segment of the right coronary artery has moderate 70% stenosis. There is 80-90% stenosis in the 2nd portion of the vessel. The RPDA has mild disease. The RPL is very small. Conclusion:: 1. Three-vessel coronary artery disease as described above with 80% mid LAD LAD stenosis, about 80% proximal circumflex stenosis and 90% stenosis at the origin of the large OM1. The right coronary artery has significant proximal/ ostial disease and then a 90% stenosis in the 2nd portion. 2. Normal left ventricular systolic function Genaro Kraft MD [facility]
--- NOTE | 2021-11-12 13:30 | PM.IMHP ---
H&P: HPI History of Present Illness Date/Time: 11/12/21 13:20 Chief Complaint: Chest pain. Narrative: This is a 51-year-old male smoker with emphysema and GERD who presented to the emergency department via EMS from home with complaints of chest pain. He got up early this morning to use the restroom and developed substernal chest pressure radiating to the arms and jaw. He has had similar episodes over the last several days which have been self-limiting however this was more intense and lasted longer. He was also a bit nauseated and short of breath though it sounds as though he has chronic dyspnea on exertion. EKG did not show any acute ST segment changes and his initial troponin was undetectable although his 3 hour troponin did bump to 0.043. Due to his symptoms and risk factors, he was taken to the tender labor where he was found to have three-vessel coronary artery disease and Cardiology is setting up transfer to [facility] for consideration of revascularization. At the time my evaluation he is resting comfortably and he is not having any chest pain. Review of Systems Review of Systems: Twelve systems were reviewed. No fever, chills, or sweats. No recent cold or flu symptoms. He weighs has generalized aches and pains which he attributes to arthritis. No syncope or near syncope. Over the years he has told that his blood pressure is high off and on however he has never been started on antihypertensives. No nausea, vomiting, or diarrhea. Except as documented, all other systems were reviewed and are negative. [facility] Past Medical History Medical History (Updated 11/13/21 @ 00:21 by Samira Rich PA-C) COPD with emphysema Gastroesophageal reflux disease Osteomyelitis Right arm as a child. Tobacco abuse Surgical History Surgical History (Updated 11/13/21 @ 00:19 by Samira Rich PA-C) History of surgery on arm Patient reportedly had surgery on his right arm related to osteomyelitis (or possible septic arthritis) which reportedly stemmed from strep throat and rheumatic fever. Family History Family History Sibling Diabetes mellitus Father Diabetes mellitus Dementia Myocardial infarction Mother Lung cancer Social History Social History (Updated 11/13/21 @ 00:19 by Samira Rich PA-C) Social History: Surrogate decision maker: Vipin Olinda, nephew. Code status: Full code. Smoking packs per day: 2 Smoking cigarettes per day: 40.0 Years smoked: 37 Smoking pack-years: 74.00 Smoking status: Current every day smoker Tobacco type: cigarettes Alcohol intake: current Drinks per week: 1 Alcohol use details: Infrequent alcohol use. 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 Spiritual care concerns: No Meds Home Medications and Allergies Home Medications Medication Instructions Recorded Confirmed Type cyclobenzaprine 10 mg PO TID PRN #20 tablet 01/08/21 11/12/21 Rx albuterol sulfate 2 puff INHALATION QID PRN #8 gm 07/21/21 11/12/21 Rx ibuprofen 600 mg PO TID PRN 11/12/21 11/12/21 History tj-aj-vkmnp-lutein-herbal 293 1 tablet PO DAILY 11/12/21 11/12/21 History [Alive Men's 50 Plus Multivit] Allergies Allergy/AdvReac Type Severity Reaction Status Date / Time codeine AdvReac Fever Verified 07/21/21 05:07 Vital Signs Vital Signs - 24 hr 11/12/21 04:33 11/12/21 04:48 11/12/21 07:15 Temperature 98.1 F Pulse Rate 98 87 77 Respiratory Rate 23 H 18 Blood Pressure 193/97 H 140/59 L Pulse Oximetry 100 96 11/12/21 08:16 11/12/21 08:31 11/12/21 08:46 Temperature Pulse Rate 96 77 89 Respiratory Rate 16 16 19 Blood Pressure 131/69 134/68 129/68 Pulse Oximetry 100 98 100 11/12/21 09:46 11/12/21 10:01 11/12/21 10:43 Temperature 98.1 F Pulse Rate 85 81 80 Respiratory Rate 18 17 20 Blood Pressure 158/70 H 135/74 145/
--- NOTE | 2021-11-12 14:10 | PC.NURSE ---
Back to room 209 from cardiac cath
[2021-11-12 15:00] LABS: Partial Thromboplastin Time 28.8 SECONDS (22.3-36.8)
[2021-11-12] MEDS: SODIUM CHLORIDE 0.9% IV 1,000 ML 125 ML IV CONT (15:36)
[2021-11-12] MEDS: ATORVASTATIN 40 MG TABLET 80 MG PO (16:25)
[2021-11-12] MEDS: LOSARTAN POTASSIUM 25 MG TABLET PO (16:25)
[2021-11-12 17:18] LABS: SARS-CoV-2 RNA PCR Negative
[2021-11-12 20:28] LABS: Partial Thromboplastin Time 51.7 SECONDS (22.3-36.8)
[2021-11-12] MEDS: METOPROLOL TARTRATE 25 MG TABLET PO (21:41)
[2021-11-13] VITALS: PULSE 71
[2021-11-13 02:00] VITALS: PULSE 65
[2021-11-13 04:00] VITALS: BP 138/91; PULSE 69; PULSE 77; RESP 16; TEMP 37.3; O2SAT 97
[2021-11-13 04:37] LABS: Basophils Absolute Auto 0.1 K/mm3 (0.0-0.1); Basophils Percent Auto 0.6 % (0.2-1.2); Eosinophils Absolute Auto 0.1 K/mm3 (0-0.3); Eosinophils Percent Auto 0.8 % (0-4.4); Hematocrit 43.1 % (42.0-52.0); Hemoglobin 14.7 g/dL (14.0-18.0); Immature Granulocyte Absolute 0.09 K/mm3 (0.00-0.031); Immature Granulocyte Percent A 1.1 % (0-0.5); Lymphocytes Absolute Auto 1.81 K/mm3 (0.9-3.2); Lymphocytes Percent Auto 21.1 % (18.3-44.2); Mean Corpuscular HGB Conc 34.1 g/dl (32-36); Mean Corpuscular Hemoglobin 29.6 pg (26-34); Mean Corpuscular Volume 86.9 fl (80-100); Mean Platelet Volume 10.9 fl (7.4-10.4); Monocytes Absolute Auto 0.6 K/mm3 (0.1-0.6); Monocytes Percent Auto 7.2 % (2.6-8.5); Neutrophils Absolute Auto 5.9 K/mm3 (1.3-6.7); Neutrophils Percent Auto 69.2 % (45.5-73.1); Platelet Count Result 234 k/mm3 (150-375); Red Blood Count 4.96 M/mm3 (4.6-6.20); Red Cell Distribution Width 14.1 % (11.5-14.5); White Blood Count 8.6 K/mm3 (4.5-10.0)
[2021-11-13 04:48] LABS: Hemoglobin A1C 5.9 % (<5.7)
[2021-11-13 04:50] LABS: Partial Thromboplastin Time 102.5 SECONDS (22.3-36.8)
[2021-11-13 06:00] VITALS: PULSE 76
[2021-11-13] MEDS: HEPARIN SOD/D5W 100 UNITS/ML 25,000 UNITS/250 ML BAG 18 UNITS IV CONT (06:00)
--- NOTE | 2021-11-13 07:46 | PM.PNCARD ---
Progress Note: A&P Assessment and Plan (1) Chest pain: Code(s): R07.9 - Chest pain, unspecified Status: Acute Assessment and Plan: Due to NSTEMI. Risk factors including smoking, hypertension, dyslipidemia, family history. (2) Tobacco abuse: Code(s): Z72.0 - Tobacco use Status: Acute Assessment and Plan: Counseled regarding smoking cessation. (3) Non-ST elevation [place] (NSTEMI): Code(s): I21.4 - Non-ST elevation (NSTEMI) myocardial infarction Status: Acute Assessment and Plan: Aspirin, heparin drip. Troponin peaked at 0.43. Started Atorvastatin 80 mg daily. Started Metoprolol Tartate 25 mg BID. NTG for pain prn. Discuss results of cardiac cath showing severe multivessel disease requiring CABG. He opted to be transferred to [facility] for CABG surgery. Spoke with CV surgeon, Dr. Foley who accepted patient at [facility]. Awaiting bed availability now. Subjective Date/time seen: 11/13/21 07:46 Continue to have intermittent mild chest pressure. No SOB. Exam Const: General: cooperative, healthy appearing and comfortable Resp: Auscultation: clear to auscultation bilaterally, no crackles, no rales, no rhonchi and no wheezes Cardio: Jugular venous distension: no JVD Rate: regular rate Rhythm: regular rhythm Heart sounds: no murmurs Peripheral pulses: dorsalis pedis present GI: GI Palp: No abdominal tenderness and Yes Soft to palpation Neuro: General: oriented to person, oriented to place and oriented to time Extrem: Right lower extremity: no edema Left lower extremity: no edema Objective Data Vital Signs Vital Signs: Vital Signs - 24 hr 11/12/21 08:16 11/12/21 08:31 11/12/21 08:46 Temperature Pulse Rate 96 77 89 Respiratory Rate 16 16 19 Blood Pressure 131/69 134/68 129/68 Pulse Oximetry 100 98 100 11/12/21 09:46 11/12/21 10:01 11/12/21 10:43 Temperature 98.1 F Pulse Rate 85 81 80 Respiratory Rate 18 17 20 Blood Pressure 158/70 H 135/74 145/84 H Pulse Oximetry 100 99 100 11/12/21 12:00 11/12/21 13:36 11/12/21 13:51 Temperature Pulse Rate 75 75 77 Respiratory Rate 15 16 18 Blood Pressure 160/95 H 168/91 H 160/91 H Pulse Oximetry 99 97 98 11/12/21 14:00 11/12/21 14:07 11/12/21 16:00 Temperature 97.8 F Pulse Rate 97 82 80 Respiratory Rate 16 Blood Pressure 147/84 H Pulse Oximetry 99 11/12/21 17:22 11/12/21 17:53 11/12/21 18:00 Temperature 97.9 F 97.9 F Pulse Rate 85 85 84 Respiratory Rate 16 16 Blood Pressure 125/71 125/71 Pulse Oximetry 99 99 11/12/21 20:00 11/12/21 20:28 11/12/21 21:41 Temperature 99.1 F Pulse Rate 75 71 Respiratory Rate 16 Blood Pressure 148/71 H Pulse Oximetry 100 96 11/12/21 22:00 11/12/21 23:46 11/13/21 00:00 Temperature 98.7 F Pulse Rate 88 71 71 Respiratory Rate 18 Blood Pressure 141/80 H Pulse Oximetry 98 11/13/21 02:00 11/13/21 04:00 11/13/21 06:00 Temperature 99.2 F Pulse Rate 65 77 76 Respiratory Rate 16 Blood Pressure 138/91 H Pulse Oximetry 97 Intake/Output Intake/Output: Intake & Output 11/10/21 11/11/21 11/12/21 11/13/21 23:59 23:59 23:59 23:59 Intake Total 590 4500 Output Total 825 1250 Balance -235 3250 Meds/Results Medications: Active Medications Generic Name Dose Route Start Last Admin Trade Name Freq PRN Reason Stop Dose Admin Albuterol 2 puff 11/12/21 13:38 Albuterol Sulfate (*Sp) Aerosol 1 Puff INHALATION QID PRN shortness of breath or wheezing Aspirin 325 mg 11/13/21 08:00 Aspirin 325 Mg Tablet PO DAILY@0800 MEERA Atorvastatin Calcium 80 mg 11/12/21 15:00 11/12/21 16:25 Atorvastatin 40 Mg Tablet PO 80 mg DAILY MEERA Administration Cyclobenzaprine HCl 10 mg 11/12/21 13:38 Cyclobenzaprine Hcl 10 Mg Tablet PO TID PRN muscle spasm Heparin Sodium (Porcine) 4,000 units 11/12/21 09:26 11/12/21 15:32 Heparin Sodium 5,000 Units/Ml V
--- NOTE | 2021-11-13 07:49 | TS_ITS ---
This document was recreated with the correct heading on 11/18/21.? The original document was signed by Shane Espinosa DO 11/13/21 0760 and addendum was made on 11/18/21 1313. ADDENDUM Transfer Summary Document: Patient was admitted for chest pain. He had normal EKG and echocardiogram. Troponin peaked at 0.43. He went for left heart cath with Dr. Kraft which showed severe multivessel CAD and needed CABG surgery. Discuss with patient in detail about his cath findings, and he opted to get transferred to [facility] for CABG. I spoke with Dr. Foley, CV surgeon and he agreed to accept patient for transfer. Patient was in stable condition for transfer. Addendum Documented By: Shane Espinosa DO 11/18/21 9837 Addendum Signed By: <Electronically signed by Shane Espinosa DO>11/18/21 1 313 Progress Note: A&P Assessment and Plan (1) Chest pain: Code(s): R07.9 - Chest pain, unspecified Status: Acute Assessment and Plan: Due to NSTEMI. Risk factors including smoking, hypertension, dyslipidemia, family history. (2) Tobacco abuse: Code(s): Z72.0 - Tobacco use Status: Acute Assessment and Plan: Counseled regarding smoking cessation. (3) Non-ST elevation OR (NSTEMI): Code(s): I21.4 - Non-ST elevation (NSTEMI) myocardial infarction Status: Acute Assessment and Plan: Aspirin, heparin drip. Troponin peaked at 0.43. Started Atorvastatin 80 mg daily. Started Metoprolol Tartate 25 mg BID. NTG for pain prn. Discuss results of cardiac cath showing severe multivessel disease requiring CABG. He opted to be transferred to [facility] for CABG surgery. Spoke with CV surgeon, Dr. Foley who accepted patient at [facility]. Awaiting bed availability now. Subjective Date/time seen: 11/13/21 07:46 Continue to have intermittent mild chest pressure. No SOB. Exam Const: General: cooperative, healthy appearing and comfortable Resp: Auscultation: clear to auscultation bilaterally, no crackles, no rales, no rhonchi and no wheezes Cardio: Jugular venous distension: no JVD Rate: regular rate Rhythm: regular rhythm Heart sounds: no murmurs Peripheral pulses: dorsalis pedis present GI: GI Palp: No abdominal tenderness and Yes Soft to palpation Neuro: General: oriented to person, oriented to place and oriented to time Extrem: Right lower extremity: no edema Left lower extremity: no edema Objective Data Vital Signs Vital Signs: Vital Signs - 24 hr 11/12/21 08:16 11/12/21 08:31 11/12/21 08:46 Temperature Pulse Rate 96 77 89 Respiratory Rate 16 16 19 Blood Pressure 131/69 134/68 129/68 Pulse Oximetry 100 98 100 11/12/21 09:46 11/12/21 10:01 11/12/21 10:43 Temperature 98.1 F Pulse Rate 85 81 80 Respiratory Rate 18 17 20 Blood Pressure 158/70 H 135/74 145/84 H Pulse Oximetry 100 99 100 11/12/21 12:00 11/12/21 13:36 11/12/21 13:51 Temperature Pulse Rate 75 75 77 Respiratory Rate 15 16 18 Blood Pressure 160/95 H 168/91 H 160/91 H Pulse Oximetry 99 97 98 11/12/21 14:00 11/12/21 14:07 11/12/21 16:00 Temperature 97.8 F Pulse Rate 97 82 80 Respiratory Rate 16 Blood Pressure 147/84 H Pulse Oximetry 99 11/12/21 17:22 11/12/21 17:53 11/12/21 18:00 Temperature 97.9 F 97.9 F Pulse Rate 85 85 84 Respiratory Rate 16 16 Blood Pressure 125/71 125/71 Pu
[2021-11-13 07:56] VITALS: BP 151/95; PULSE 78; RESP 20; TEMP 36.5; O2SAT 98
[2021-11-13] MEDS: LOSARTAN POTASSIUM 25 MG TABLET PO (09:10)
[2021-11-13] MEDS: ASPIRIN 325 MG TABLET PO (09:11)
[2021-11-13] MEDS: METOPROLOL TARTRATE 25 MG TABLET PO (09:11)
[2021-11-13] MEDS: ATORVASTATIN 40 MG TABLET 80 MG PO (09:11)
--- NOTE | 2021-11-13 11:48 | PCCCNOTE ---
On 11/11/21, the student, [Carmen Olivarez], provided care and completed [facility] documentation on this patient. I have reviewed the student's documentation and agree with the findings.
== END 2021-11-13 10:02 | disposition short-term general hospital (02) | DRG 282 ==
LOC: ANHED 09:05 → ANHIMU 11:32
PROVIDERS: Emergency Medicine; Internal Medicine Cardiovascular Disease; Physician Assistant; Specialist; Admitting Provider Student in an Organized Health Care Education/Training Program; Emergency Provider Emergency Medicine; PCP Internal Medicine; Visit Provider Student in an Organized Health Care Education/Training Program
PROC: 4A023N7 Measurement of Cardiac Sampling and Pressure, Left Heart, Percutaneous Approach (ICD-10-PCS; CPT 93452; principal; 2021-11-12 12:15)
PROC: 4A023N7 Measurement of Cardiac Sampling and Pressure, Left Heart, Percutaneous Approach (ICD-10-PCS; 2021-11-12 12:15)
DX: I21.4 Non-ST elevation (NSTEMI) myocardial infarction (principal); I25.10 Atherosclerotic heart disease of native coronary artery without angina pectoris; I10 Essential (primary) hypertension; R73.9 Hyperglycemia, unspecified; R06.09 Other forms of dyspnea; E78.5 Hyperlipidemia, unspecified; F17.210 Nicotine dependence, cigarettes, uncomplicated; J43.9 Emphysema, unspecified; K21.9 Gastro-esophageal reflux disease without esophagitis; Z20.822 Contact with and (suspected) exposure to COVID-19
CPT/HCPCS: 36415; 71046; 80053; 80061; 83036; 83690; 84484; 85025; 85610; 85730; 93005; 93306; 93458; 96365; 96366; 99285; A9270; C1760; C1887; C1894; C9803; G0269; J0583; J1644; J2250; J3010; J7030; J7040; U0003; U0005

== ENCOUNTER 2021-12-15 09:25 | Observation (INO) | payer OTHER, SELFPAY ==
[2021-12-15] VITALS (49 sets, daily range): BP systolic 110–132; BP diastolic 73–91; PULSE 73–94; RESP 12–22; TEMP 36.5–37; O2SAT 95–99; BMI 29.2
--- NOTE | ~2021-12-15 | XR_ITS ---
XR chest 2V DATE: 12/15/2021 09:48 INDICATION: Chest pain, pressure. Recent quadruple bypass TECHNIQUE: PA and lateral views COMPARISON: 11/12/2021 2 view chest FINDINGS: Status post sternotomy and coronary artery bypass graft surgery since 11/12/2021. There is mild infiltrate and atelectasis in the left lung base. The lungs otherwise appear clear. Normal heart size. No pulmonary vascular congestion. Minimal left pleural effusion. No pneumothorax. IMPRESSION: Status post sternotomy and coronary bypass graft surgery since 11/12/2021 Mild infiltrate/atelectasis in the left lower lung, minimal left pleural effusion Reviewed, dictated and finalized at location A. IMPRESSION: Status post sternotomy and coronary bypass graft surgery since 11/12 Mild infiltrate/atelectasis in the left lower lung, minimal left pleural effusi on
--- NOTE | ~2021-12-15 | US_ITS ---
EXAMINATION: US abdomen limited DATE: 12/16/2021 11:30 INDICATION: Abnormal liver function tests. TECHNIQUE: Multiple grayscale and Doppler ultrasound images of the abdomen were obtained. COMPARISON: PET CT 09/02/2021 FINDINGS: The visualized portions of the head and body of the pancreas are normal. There is diffuse h epatic steatosis. There is normal flow in main portal vein. The gallbladder is normal in size and con tains sludge. No gallstones or gallbladder wall thickening. There was no sonographic Yeung sign. The common duct is normal and measures 4 mm. IMPRESSION: 1. Diffuse hepatic steatosis. 2. Gallbladder sludge. No evidence of acute cholecystitis. Reviewed, dictated and finalized at location B.
--- NOTE | 2021-12-15 09:29 | ECG_ITS ---
Measurements Intervals [place] Rate: 82 P: 44 CT: 169 QRS: 7 QRSD: 100 T: 30 QT: 372 QTc: 437 Interpretive Statements SINUS RHYTHM NONSPECIFIC T-WAVE ABNORMALITY ABNORMAL ECG COMPARED TO ECG 11/12/2021 04:37:22 NO SIGNIFICANT CHANGES Electronically Signed On 12-15-2021 10:33:53 CDT by Patrice Zimmerman M.D.
[2021-12-15 09:48] LABS: Basophils Absolute Auto 0.1 K/mm3 (0.0-0.1); Basophils Percent Auto 0.8 % (0.2-1.2); Eosinophils Absolute Auto 0.4 K/mm3 (0-0.3); Eosinophils Percent Auto 5.9 % (0-4.4); Hematocrit 39.1 % (42.0-52.0); Hemoglobin 12.4 g/dL (14.0-18.0); Immature Granulocyte Absolute 0.07 K/mm3 (0.00-0.031); Immature Granulocyte Percent A 0.9 % (0-0.5); Lymphocytes Absolute Auto 1.72 K/mm3 (0.9-3.2); Lymphocytes Percent Auto 23.1 % (18.3-44.2); Mean Corpuscular HGB Conc 31.7 g/dl (32-36); Mean Corpuscular Hemoglobin 28.1 pg (26-34); Mean Corpuscular Volume 88.5 fl (80-100); Mean Platelet Volume 9.8 fl (7.4-10.4); Monocytes Absolute Auto 0.5 K/mm3 (0.1-0.6); Neutrophils Absolute Auto 4.7 K/mm3 (1.3-6.7); Neutrophils Percent Auto 63.3 % (45.5-73.1); Platelet Count Result 321 k/mm3 (150-375); Red Blood Count 4.42 M/mm3 (4.6-6.20); Red Cell Distribution Width 14.4 % (11.5-14.5); White Blood Count 7.5 K/mm3 (4.5-10.0)
[2021-12-15 09:58] LABS: Alanine Aminotransferase 145 U/L (6-50); Albumin Level 4.7 g/dL (3.5-5.1); Alkaline Phosphatase 138 U/L (38-126); Anion Gap 10 mmol/L (8-16); Aspartate Amino Transferase 72 U/L (17-59); Bilirubin,Total 0.3 mg/dL (0.2-1.3); Blood Urea Nitrogen 19 mg/dL (9-20); Calcium 9.2 mg/dL (8.4-10.2); Carbon Dioxide 19 mmol/L (22-30); Chloride 107 mmol/L (98-107); Estimated CRCL calculation 92 ml/min; Estimated Glomerular Filt Rate > 60; Glucose 112 mg/dL (65-110); Lipase 48 U/L (23-300); Potassium 4.2 mmol/L (3.4-5.0); Sodium 136 mmol/L (137-145)
[2021-12-15 10:04] LABS: Prothrombin Time 13.1 Seconds (11.1-14.7)
[2021-12-15 10:05] LABS: Partial Thromboplastin Time 27.2 SECONDS (22.3-36.8)
[2021-12-15 10:09] LABS: Troponin I < 0.012 ng/mL (0.000-0.034)
[2021-12-15] MEDS: NITROGLYCERIN OINTMENT 1 INCH DOSE 0.5 INCH TRANSDERM (10:17)
[2021-12-15] MEDS: ASPIRIN 81 MG CHEWABLE TABLET 324 MG PO (10:17)
--- NOTE | 2021-12-15 10:20 | ED.CHESTPAIN ---
HPI - Chest Pain General Chief Complaint: Chest Pain Stated Complaint: CP Time Seen by Provider: 12/15/21 09:43 Source: patient Mode of arrival: ambulatory Limitations: no limitations History of Present Illness HPI narrative: 51-year-old male with history of quadruple bypass done within the last month at [facility] presents today with complaints of midsternal chest pain. Patient states he has been having chronic pain since his quadruple bypass but this was different this morning. His chronic pain is normally like a dull ache on the incision this morning he started with pressure rated 5 out of 10. Patient states it started prior to his breakfast this morning. Patient denied any aggravating factors or radiation of pain to the jaw or down the arm. But patient did note relief when EMS gave him nitro sprays. Patient's pain was a 5 out of 10 prior to the nitro and would to 3 out of 10. Patient states pain is currently increasing. Related Data Home Medications Medication Instructions Recorded Confirmed aspirin 81 mg tablet,delayed 81 mg PO DAILY 12/03/21 12/08/21 release (Adult Aspirin Regimen) atorvastatin 40 mg tablet 40 mg PO DAILY 12/03/21 12/08/21 furosemide 40 mg tablet 40 mg PO QAM 12/03/21 12/08/21 metoprolol tartrate 25 mg tablet 25 mg PO BID 12/03/21 12/08/21 omega 3-ped-olk-fish oil 1,000 mg 1 cap PO BID 12/03/21 12/08/21 (120 mg-180 mg) capsule (Fish Oil) oxycodone 5 mg tablet 5 mg PO Q8H PRN Pain 12/03/21 12/08/21 potassium chloride 20 mEq 20 meq PO DAILY 12/03/21 12/08/21 tablet,extended release umeclidinium 62.5 mcg-vilanterol 1 inh inhalation DAILY 12/03/21 12/08/21 25 mcg/actuation powdr for inhalation (Anoro Ellipta) Allergies Allergy/AdvReac Type Severity Reaction Status Date / Time codeine AdvReac Fever Verified 12/15/21 09:31 Review of Systems Review of Systems: CONSTITUTIONAL: Denies fever, chills, or sweats. EYES: Denies visual changes, redness, or discharge. ENT: Denies rhinorrhea, congestion, sore throat, or otalgia. CARDIOVASCULAR: Chest pain. denies palpitations, or edema. RESPIRATORY: Denies cough or dyspnea. GASTROINTESTINAL: Denies abdominal pain, nausea, vomiting, or diarrhea. GENITOURINARY: Denies dysuria or hematuria. SKIN: Denies rash or itching. MUSCULOSKELETAL: Denies back pain, joint pain, or myalgia. NEUROLOGIC: Denies headache, numbness, dizziness, or weakness. PSYCHIATRIC: Denies anxiety or depression. FORMERLY [facility] Past Medical History Medical History (Updated 12/15/21 @ 12:17 by Maria Teresa Perez APRN) CAD (coronary artery disease), autologous vein bypass graft COPD with emphysema Dyslipidemia Gastroesophageal reflux disease Osteomyelitis Right arm as a child. Tobacco abuse Surgical History Surgical History History of surgery on arm Patient reportedly had surgery on his right arm related to osteomyelitis (or possible septic arthritis) which reportedly stemmed from strep throat and rheumatic fever. Hx of eye surgery 1969' Family History Family History Sibling Diabetes mellitus Father Diabetes mellitus Dementia Myocardial infarction Mother Lung cancer Social History Social History Social History: Surrogate decision maker: Vipin Prakash, nephew. Code status: Full code. Smoking packs per day: 2 Smoking cigarettes per day: 40.0 Years smoked: 37 Smoking pack-years: 74.00 Smoking status: Former smoker Tobacco type: cigarettes Alcohol intake: former Drinks per week: 1 Alcohol use details: Infrequent alcohol use. 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 Spiritual care concerns: No Exam Narrative: GENERAL: Well-appearing, well-nourished, and in no acute distress. HEAD: Normocephalic, a
[2021-12-15] MEDS: fentaNYL CITRATE INJ (*CRX) 100 MCG/2 ML VIAL 25 MCG IV PUSH (12:20)
[2021-12-15 12:37] LABS: Troponin I < 0.012 ng/mL (0.000-0.034)
--- NOTE | 2021-12-15 12:54 | PM.CNCAR ---
Assessment and Plan Assessment and plan (1) Chest pain: Qualifiers: Chest pain type: unspecified Qualified Code(s): R07.9 - Chest pain, unspecified Code(s): R07.9 - Chest pain, unspecified Status: Acute Assessment and Plan: This could be musculoskeletal pain, or CAD. Thus far EKG and troponin unremarkable. Obtain limited echo to assess for wall motion abnormalities. Trend troponin. Pain control. (2) CAD (coronary artery disease), autologous vein bypass graft: Code(s): I25.810 - Atherosclerosis of coronary artery bypass graft(s) without angina pectoris Status: Acute (3) Dyslipidemia: Code(s): E78.5 - Hyperlipidemia, unspecified Status: Acute Assessment and Plan: Hold off on Atorvastatin due to transaminitis. (4) Transaminitis: Code(s): R74.01 - Elevation of levels of liver transaminase levels Status: Acute Assessment and Plan: Needs evaluation for gallbladder/liver disease. History of Present Illness History of Present Illness Consult date/time: 12/15/21 12:54 Consult reason: chest pain Reason For Visit: Chest pain Narrative: 51 yr old man who is my regular cardiology patient presents to ER for chest pain. He has a history of CAD/CABG, hypertension, dyslipidemia, COPD, former smoking 2 ppd quit in October 2021 and family history of his father with CAD/CABG. Reports chest pressure last night. He did aggravate his right shoulder recently. The chest pain is mildly worse when lying on his right side and when taking a deep breath. It is not reproducible by palpation. States discomfort is similar to prior to his CABG recently. Thus far troponin is 0, EKG unremarkable.? Previously, reported he has been having intermittent chest pressure with radiation to jaw and both arms for last 3 days. Last night when he was getting into bed he had 8/10 chest pressure that he called EMS and was given aspirin. It comes and goes and currently at 2/10 CP.? States that walking or activity would make chest pain worse. Normally can only walk 1 block due to VILLEGAS. Cardiovascular Procedures Wage Analyst:: 11/13/21 Dr. Foley CABG x 4 vessels: CARBAJAL to LAD, radial as T graft off CARBAJAL sequential to OM1 and OM3, MORGAN to PDA and sternal plating. 11/12/21 Dr. Kraft cath: Mid LAD 80%, 80% prox LCc, 90% origin of OM, RCA ostial 90%, 90% 2nd portion. Echo/MUGA:: 11/12/21 Echo: EF 60-65%, grade I diastolic dysfunction, trace TR. Review of Systems Review of Systems: All systems reviewed & are unremarkable except as noted in HPI and below Constitutional: Constitutional: Reports as per HPI, Denies chills and Denies fever(s) Cardiovascular: Cardiovascular: Reports as per HPI, Reports chest pain, Denies irregular heart rhythm, Denies leg edema and Denies lightheadedness Respiratory: Respiratory: Reports as per HPI and Denies dyspnea Gastrointestinal: Gastrointestinal: Reports as per HPI and Denies abdominal pain Genitourinary: Genitourinary: Reports as per HPI and Denies dysuria Musculoskeletal: Musculoskeletal: Reports as per HPI and Reports arthralgias Neurologic: Reports as per HPI, Denies dizziness and Denies syncope FOR[facility]LY [facility], [facility] Past Medical History Medical History (Updated 12/15/21 @ 12:58 by Shane Espinosa DO) CAD (coronary artery disease), autologous vein bypass graft COPD with emphysema Dyslipidemia Gastroesophageal reflux disease Osteomyelitis Right arm as a child. Tobacco abuse Surgical History Surgical History History of surgery on arm Patient reportedly had surgery on his right arm related to osteomyelitis (or possible septic arthritis) which reportedly stemmed from strep throat and rheumatic fever. Hx of eye surgery Family History Family History Sibling Diabetes mellitus Father Diabetes mellitus Dementia Myocardial infarction Mother Lung cancer
--- NOTE | 2021-12-15 14:40 | PM.IMHP ---
H&P: HPI History of Present Illness Date/Time: 12/15/21 14:40 Chief Complaint: chest pain Narrative: ED-HPI narrative: 51-year-old male with history of quadruple bypass done within the last month at [facility] presents today with complaints of midsternal chest pain.? Patient states he has been having chronic pain since his quadruple bypass but this was different this morning.? His chronic pain is normally like a dull ache on the incision this morning he started with pressure rated 5 out of 10.? Patient states it started prior to his breakfast this morning.? Patient denied any aggravating factors or radiation of pain to the jaw or down the arm.? But patient did note relief when EMS gave him nitro sprays.? Patient's pain was a 5 out of 10 prior to the nitro and would to 3 out of 10.? Patient states pain is currently increasing. patient seen by his Cardiology as 2 sets of cardiac enzymes are negative an EKG does not show any acute changes, chest pain there is no change in intensity with exertion, as chest pain is reproducible upon palpation and suspect suspect most likely patient has rectal chest pain to further evaluate patient have a cardiac echo to check a structural injury, patient also has elevated liver enzymes patient denies history of alcohol, abdominal pain nausea or vomiting to further evaluate will do the hepatitis panel and right upper quadrant ultrasound will continue to monitor. patient admitted as observation status Review of Systems Review of Systems: All systems reviewed & are unremarkable except as noted in HPI and below Constitutional: Constitutional: Reports as per HPI, Denies chills and Denies fever(s) [facility] Past Medical History Medical History (Updated 12/15/21 @ 12:58 by Shane Espinosa DO) CAD (coronary artery disease), autologous vein bypass graft COPD with emphysema Dyslipidemia Gastroesophageal reflux disease Osteomyelitis Right arm as a child. Tobacco abuse Surgical History Surgical History History of surgery on arm Patient reportedly had surgery on his right arm related to osteomyelitis (or possible septic arthritis) which reportedly stemmed from strep throat and rheumatic fever. Hx of eye surgery Family History Family History Sibling Diabetes mellitus Father Diabetes mellitus Dementia Myocardial infarction Mother Lung cancer Social History Social History Social History: Surrogate decision maker: Vipin Rosalesey, nephew. Code status: Full code. Smoking packs per day: 2 Smoking cigarettes per day: 40.0 Years smoked: 37 Smoking pack-years: 74.00 Smoking status: Former smoker Tobacco type: cigarettes Smoking end date: 11/12/21 Alcohol intake: former Drinks per week: 1 Alcohol use details: Infrequent alcohol use. 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 Spiritual care concerns: No Meds Home Medications and Allergies Home Medications Medication Instructions Recorded Confirmed Type aspirin 81 mg tablet,delayed 81 mg PO DAILY 12/03/21 12/15/21 History release (Adult Aspirin Regimen) atorvastatin 40 mg tablet 40 mg PO DAILY 12/03/21 12/15/21 History furosemide 40 mg tablet 40 mg PO QAM 12/03/21 12/15/21 History metoprolol tartrate 25 mg tablet 25 mg PO BID 12/03/21 12/15/21 History omega 9-pnu-zua-fish oil 1,000 mg 1 cap PO BID 12/03/21 12/15/21 History (120 mg-180 mg) capsule (Fish Oil) oxycodone 5 mg tablet 5 mg PO Q8H PRN Pain 12/03/21 12/15/21 History potassium chloride 20 mEq 20 meq PO DAILY 12/03/21 12/15/21 History tablet,extended release umeclidinium 62.5 mcg-vilanterol 1 inh inhalation DAILY 12/03/21 12/15/21 History 25 mcg/actuation powdr for inhalation (Anoro Ellipta)
[2021-12-15 15:54] LABS: Troponin I < 0.012 ng/mL (0.000-0.034)
[2021-12-15 16:47] LABS: Hepatitis B Surface Antigen Negative (Negative)
[2021-12-15 16:52] LABS: HAV RESULT Negative (Negative); Hepatitis B Core IgM Result Negative (Negative)
[2021-12-15 17:04] LABS: Hepatitis C Virus Antibody Negative (Negative)
[2021-12-15] MEDS: oxyCODONE HCL (*CRX) 5 MG TAB IR PO (17:47)
[2021-12-15] MEDS: OMEGA 3 POLYUNSAT FATTY ACIDS 1 GM CAP PO (17:47)
[2021-12-15] MEDS: METOPROLOL TARTRATE 25 MG TABLET PO (21:12)
[2021-12-16] VITALS (9 sets, daily range): BP systolic 119–136; BP diastolic 71–83; PULSE 68–79; RESP 14–18; TEMP 36.7–37.2; O2SAT 96–100
--- NOTE | 2021-12-16 | ECHOL_ITS ---
Patient Info Name: Chong Prakash Age: 51 years : 1970 Gender: Male Ht: 72 in Wt: 215 lbs BSA: 2.25 m2 HR: 72 bpm BP: 119 / 71 mmHg Technical Quality: Good Exam Date: 12/16/2021 10:53 AM Exam Location: [facility] Patient Status: Outpatient Admit Date: 12/15/2021 Staff Ordering Physician: Shane Espinosa DO Foam Rubber Mixer: Hernandez Yeung, ALTAGRACIA, RT Attending Provider: Rohit Mckinley MD Referring Physician: Jesús ERICKSON; Exam Type: CA echo limited Study Info Indications I50.9 - Heart failure, unspecified Limited two-dimensional transthoracic echocardiogram is performed. Strain analysis performed. Summary 1. Limited echocardiogram to assess for wall motion abnormalities. 2. Definity contrast administered improved wall motion interpretation. 3. Left ventricular chamber dimension is normal. 4. Left ventricular systolic function is normal, estimated at 55-60%. 5. Left ventricular septal wall motion is abnormal with septal motion related to a post-operative state. 6. The left ventricular diastolic function is indeterminate. 7. Global longitudinal strain is abnormal at -12.1%. Left Ventricle Limited echocardiogram to assess for wall motion abnormalities. Definity contrast administered improved wall motion interpretation. Global longitudinal strain is abnormal at -12.1%. Left ventricular chamber dimension is normal. Left ventricular systolic function is normal, estimated at 55-60%. Left ventricular septal wall motion is abnormal with septal motion related to a post-operative state. The left ventricular diastolic function is indeterminate. Ventricles Name Value Normal LV Fractional Shortening/Ejection Fraction 2D/MM LV Diastolic Volume (4C MOD) 93 ml LV EF (4C MOD) 52 % LV Diastolic Volume (2C MOD) 109 ml LV EF (2C MOD) 61 % LV Diastolic Volume (BP MOD) 103 ml 62-150 LV Diastolic Volume Index (BP MOD) 46 ml/m2 34-74 LV Systolic Volume (BP MOD) 43 ml 21-61 LV Systolic Volume Index (BP MOD) 19 ml/m2 11-31 LV EF (BP MOD) 58 % 52-72 LV Diastolic Length (4C) 8.3 cm LV Systolic Length (4C) 7.1 cm LV Stroke Volume (4C MOD) 49 ml EchoPAC Name Value Normal AutoEF LVCO_BiP_Q (Tndu1MOY) 2.7 l/min LVEF_BiP_Q (Utep5ZDI) 45 % LVSV_BiP_Q (Bxpq7BRB) 34 ml LVVED_BiP_Q (Bruq2GPW) 76 ml LVVES_BiP_Q (Dnre8RAH) 42 ml HR_4Ch_Q (Pzxe0UJF) 76 bpm LVCO_4Ch_Q (Mnyt7YUY) 2.3 l/min LVEF_4Ch_Q (Jfbz7MDT) 41 % LVLd_4Ch_Q (Ydzv7HRG) 8.5 cm LVLs_4Ch_Q (Fmvf9VDX) 7.2 cm
[2021-12-16] MEDS: oxyCODONE HCL (*CRX) 5 MG TAB IR PO (01:23)
[2021-12-16 05:11] LABS: Basophils Absolute Auto 0.1 K/mm3 (0.0-0.1); Basophils Percent Auto 0.9 % (0.2-1.2); Eosinophils Absolute Auto 0.4 K/mm3 (0-0.3); Hematocrit 38.5 % (42.0-52.0); Hemoglobin 12.3 g/dL (14.0-18.0); Immature Granulocyte Absolute 0.08 K/mm3 (0.00-0.031); Immature Granulocyte Percent A 0.9 % (0-0.5); Lymphocytes Absolute Auto 2.07 K/mm3 (0.9-3.2); Lymphocytes Percent Auto 23.5 % (18.3-44.2); Mean Corpuscular HGB Conc 31.9 g/dl (32-36); Mean Corpuscular Volume 87.7 fl (80-100); Mean Platelet Volume 10.4 fl (7.4-10.4); Monocytes Absolute Auto 0.7 K/mm3 (0.1-0.6); Monocytes Percent Auto 7.7 % (2.6-8.5); Neutrophils Absolute Auto 5.5 K/mm3 (1.3-6.7); Platelet Count Result 323 k/mm3 (150-375); Red Blood Count 4.39 M/mm3 (4.6-6.20); Red Cell Distribution Width 14.4 % (11.5-14.5); White Blood Count 8.8 K/mm3 (4.5-10.0)
[2021-12-16 05:27] LABS: Alanine Aminotransferase 123 U/L (6-50); Albumin Level 4.5 g/dL (3.5-5.1); Alkaline Phosphatase 132 U/L (38-126); Anion Gap 8 mmol/L (8-16); Aspartate Amino Transferase 56 U/L (17-59); Bilirubin,Total 0.4 mg/dL (0.2-1.3); Blood Urea Nitrogen 18 mg/dL (9-20); Calcium 9.2 mg/dL (8.4-10.2); Carbon Dioxide 21 mmol/L (22-30); Chloride 108 mmol/L (98-107); Estimated CRCL calculation 117 ml/min; Estimated Glomerular Filt Rate > 60; Glucose 105 mg/dL (65-110); Magnesium 2.1 mg/dL (1.6-2.3); Potassium 4.5 mmol/L (3.4-5.0); Sodium 137 mmol/L (137-145)
[2021-12-16] MEDS: OMEGA 3 POLYUNSAT FATTY ACIDS 1 GM CAP PO (08:35)
[2021-12-16] MEDS: UMECLIDINIUM/VILANTEROL 62.5-25 MCG ELLIPTA 1 PUFF INHALATION (08:35)
[2021-12-16] MEDS: ATORVASTATIN 40 MG TABLET PO (08:35)
[2021-12-16] MEDS: POTASSIUM CHLORIDE 20 MEQ TABLET.ER PO (08:35)
[2021-12-16] MEDS: ASPIRIN 81 MG ENTERIC TABLET PO (08:35)
[2021-12-16] MEDS: FUROSEMIDE 40 MG TABLET PO (08:35)
[2021-12-16] MEDS: METOPROLOL TARTRATE 25 MG TABLET PO (08:35)
[2021-12-16] MEDS: ENOXAPARIN 40 MG/0.4 ML SYRINGE SUB-Q (08:36)
--- NOTE | 2021-12-16 08:47 | PM.PNCARD ---
Progress Note: A&P Assessment and Plan (1) Chest pain: Qualifiers: Chest pain type: unspecified Qualified Code(s): R07.9 - Chest pain, unspecified Code(s): R07.9 - Chest pain, unspecified Status: Acute Assessment and Plan: Due to musculoskeletal or incisional pain. He has been r/o for [place] by serial troponin and EKG. Check limited echo. Pain control by hospitalist. (2) Transaminitis: Code(s): R74.01 - Elevation of levels of liver transaminase levels Status: Acute Assessment and Plan: Check U/S abd. Since improving and only ALT elevated at 123 and alk phos at 132, will continue Atorvastatin. (3) CAD (coronary artery disease), autologous vein bypass graft: Code(s): I25.810 - Atherosclerosis of coronary artery bypass graft(s) without angina pectoris Status: Acute (4) Hypertension: Code(s): I10 - Essential (primary) hypertension Status: Acute Assessment and Plan: Stable. (5) Dyslipidemia: Code(s): E78.5 - Hyperlipidemia, unspecified Status: Acute Assessment and Plan: On Atorvastatin. Subjective Date/time seen: 12/16/21 08:47 Has 5/10 mid chest pain worse with palpation. No Sob. Exam Const: General: cooperative, healthy appearing and comfortable Resp: Auscultation: clear to auscultation bilaterally, no crackles, no rales, no rhonchi and no wheezes Cardio: Jugular venous distension: no JVD Rate: regular rate Rhythm: regular rhythm Heart sounds: no murmurs Peripheral pulses: dorsalis pedis present GI: GI Palp: No abdominal tenderness and Yes Soft to palpation Neuro: General: oriented to person, oriented to place and oriented to time Extrem: Right lower extremity: no edema Left lower extremity: no edema Objective Data Vital Signs Vital Signs: Vital Signs - 24 hr 12/15/21 09:23 12/15/21 13:20 12/15/21 14:00 Temperature 97.8 F 97.8 F Pulse Rate 86 80 79 Respiratory Rate 18 16 Blood Pressure 132/83 121/79 Pulse Oximetry 98 98 Oxygen Delivery Room Air 12/15/21 15:20 12/15/21 16:00 12/15/21 16:00 Temperature 98.6 F Pulse Rate 80 79 80 Respiratory Rate 16 18 Blood Pressure 118/75 Pulse Oximetry 98 98 Oxygen Delivery Room Air 12/15/21 16:00 12/15/21 13:15 12/15/21 09:28 Temperature Pulse Rate 79 76 92 Respiratory Rate 18 16 19 Blood Pressure 121/81 Pulse Oximetry 98 95 98 Oxygen Delivery Room Air 12/15/21 09:29 12/15/21 09:30 12/15/21 09:31 Temperature Pulse Rate 86 89 85 Respiratory Rate 20 12 19 Blood Pressure 110/91 H 132/83 126/85 Pulse Oximetry 98 98 99 Oxygen Delivery 12/15/21 09:32 12/15/21 09:49 12/15/21 09:50 Temperature Pulse Rate 86 86 86 Respiratory Rate 17 18 22 H Blood Pressure 122/85 Pulse Oximetry 98 98 98 Oxygen Delivery 12/15/21 10:00 12/15/21 10:01 12/15/21 10:15 Temperature Pulse Rate 84 87 79 Respiratory Rate 21 H 17 17 Blood Pressure 128/80 Pulse Oximetry 98 98 96 Oxygen Delivery 12/15/21 10:30 12/15/21 10:45 12/15/21 10:46 Temperature Pulse Rate 84 78 81 Respiratory Rate 21 H 19 18 Blood Pressure 121/82 Pulse Oximetry 97 98 97 Oxygen Delivery 12/15/21 11:00 12/15/21 11:15 12/15/21 11:30 Temperature Pulse Rate 92 86 80 Respiratory Rate 17 21 H 21 H Blood Pressure Pulse Oximetry 97 99 98 Oxygen Delivery 12/15/21 11:31 12/15/21 11:45 12/15/21 12:00 Temperature Pulse Rate 80 78 82 Respiratory Rate 20 17 18 Blood Pressure 116/79 Pulse Oximetry 98 98 97 Oxygen Delivery 12/15/21 12:15 12/15/21 12:16 12/15/21 12:31 Temperature Pulse Rate 80 80 80 Respiratory Rate 17 12 17 Blood Pressure 119/84 Pulse Oximetry 99 98 97 Oxygen Delivery 12/15/21 12:45 12/15/21 13:00 12/15/21 13:01 Temperature Pulse Rate 78 78 82 Respiratory Rate 18 17 18 Blood Pressure 121/81 Pulse Oximetry 95 95 95 Oxygen Delivery 12/15/21 13:15
[2021-12-16] MEDS: PERFLUTREN LIPID MICROSPHERES 1.5 ML VIAL DILUTED TO 10 ML TOTAL VOLUME IV PUSH (10:42)
--- NOTE | 2021-12-16 10:43 | IVDEFINITY ---
Prior to administration of IV Definity the patient was educated on the risks and benefits of the imaging enhancing agent including potential adverse side effects. The patient verbalized understanding. Allergies were verified. No exclusion criteria were identified and at least one of the following inclusion criteria were met: 1) physician request, 2) patient technically difficult to image (per the [place] [employer] Echocardi[employer] guidelines of two or more segments not discernable within the apical view), or 3) questionable left ventricular function. ?
--- NOTE | 2021-12-16 13:16 | PCCCNOTE ---
On 12/16/21, the student, [Carmen Olivarez], provided care and completed [facility] documentation on this patient. I have reviewed the student's documentation and agree with the findings.
--- NOTE | 2021-12-16 13:48 | PM.DS ---
DS: Admitting Diagnosis Discharge Date 12/16/2021 Admitting Diagnosis chest pain DS: Discharge Diagnosis Discharge Diagnosis (1) Chest pain: Qualifiers: Chest pain type: unspecified Qualified Code(s): R07.9 - Chest pain, unspecified Code(s): R07.9 - Chest pain, unspecified Status: Acute Assessment and Plan: ED-HPI narrative: 51-year-old male with history of quadruple bypass done within the last month at [facility] presents today with complaints of midsternal chest pain.? Patient states he has been having chronic pain since his quadruple bypass but this was different this morning.? His chronic pain is normally like a dull ache on the incision this morning he started with pressure rated 5 out of 10.? Patient states it started prior to his breakfast this morning.? Patient denied any aggravating factors or radiation of pain to the jaw or down the arm.? But patient did note relief when EMS gave him nitro sprays.? Patient's pain was a 5 out of 10 prior to the nitro and would to 3 out of 10.? Patient states pain is currently increasing. patient seen by his Cardiology as 2 sets of cardiac enzymes are negative an EKG does not show any acute changes, chest pain there is no change in intensity with exertion, as chest pain is reproducible upon palpation and suspect suspect most likely patient has rectal chest pain to further evaluate patient have a cardiac echo to check a structural injury, patient also has elevated liver enzymes patient denies history of alcohol, abdominal pain nausea or vomiting to further evaluate will do the hepatitis panel and right upper quadrant ultrasound will continue to monitor. (2) Transaminitis: Code(s): R74.01 - Elevation of levels of liver transaminase levels Status: Acute Assessment and Plan: etiology uncertain will do the acute hepatitis pain right upper quadrant ultrasound (3) Hypertension: Code(s): I10 - Essential (primary) hypertension Status: Acute Assessment and Plan: will continue home regimen and monitor (4) Hyperglycemia: Code(s): R73.9 - Hyperglycemia, unspecified Status: Acute Assessment and Plan: patient last hemoglobin A1c in October was 5.9, unlikely patient has diabetes, will monitor with the sliding scale DS: Summary Hospital Course Reason for hospitalization: ED-HPI narrative: 51-year-old male with history of quadruple bypass done within the last month at [facility] presents today with complaints of midsternal chest pain.? Patient states he has been having chronic pain since his quadruple bypass but this was different this morning.? His chronic pain is normally like a dull ache on the incision this morning he started with pressure rated 5 out of 10.? Patient states it started prior to his breakfast this morning.? Patient denied any aggravating factors or radiation of pain to the jaw or down the arm.? But patient did note relief when EMS gave him nitro sprays.? Patient's pain was a 5 out of 10 prior to the nitro and would to 3 out of 10.? Patient states pain is currently increasing. patient seen by his Cardiology as 2 sets of cardiac enzymes are negative an EKG does not show any acute changes, chest pain there is no change in intensity with exertion, as chest pain is reproducible upon palpation and suspect suspect most likely patient has rectal chest pain to further evaluate patient have a cardiac echo to check a structural injury, patient also has elevated liver enzymes patient denies history of alcohol, abdominal pain nausea or vomiting to further evaluate will do the hepatitis panel and right upper quadrant ultrasound will continue to monitor. Hospital Course: patient seen by his Cardiology as 2 sets of cardiac enzymes are negative an EKG does not show any acute changes, chest pain there is no change in intensity with exertion, as chest pain is reproducible upon palpation and suspect suspe
== END 2021-12-16 14:35 | disposition home or self-care (01) ==
LOC: ANHED 12:17 → ANHIMU 12:50
PROVIDERS: Emergency Medicine; Admitting Provider Family Medicine; Emergency Provider Nurse Practitioner Family; PCP Internal Medicine; Visit Provider Family Medicine
DX: R07.9 Chest pain, unspecified (principal); I25.10 Atherosclerotic heart disease of native coronary artery without angina pectoris; R73.9 Hyperglycemia, unspecified; R74.01 Elevation of levels of liver transaminase levels; J44.9 Chronic obstructive pulmonary disease, unspecified; E78.5 Hyperlipidemia, unspecified; K21.9 Gastro-esophageal reflux disease without esophagitis; F17.210 Nicotine dependence, cigarettes, uncomplicated; I10 Essential (primary) hypertension; Z79.82 Long term (current) use of aspirin; Z98.890 Other specified postprocedural states
CPT/HCPCS: 36415; 71046; 76705; 80053; 80074; 83690; 83735; 84484; 85025; 85610; 85730; 93005; 93308; 94640; 96372; 96374; 99285; A9270; G0378; J1650; J3010; Q9957

== ENCOUNTER → 2022-01-25 09:47 | Outpatient (CLI) | payer OTHER, SELFPAY ==
--- NOTE | ~2022-01-25 | XR_ITS ---
XR lumbar spine 2-3V 01/25/2022 10:02 Indication: Low back pain Procedure: 3 views lumbar spine Comparison: No prior studies for comparison. Findings: There is mild disc narrowing at L4-5 and L5-S1. There is facet hypertrophy of the mid and l ower lumbar facet hypertrophy. No acute fracture. Pedicles intact. Sacral foramen are symmetric. No e vidence for spondylolisthesis. Impression: 1: Moderate lumbar spondylosis. Reviewed, dictated and finalized at location A. Impression: 1: Moderate lumbar spondylosis.
== END ==
PROVIDERS: PCP Internal Medicine; Visit Provider Internal Medicine
DX: M79.605 Pain in left leg (principal); M79.604 Pain in right leg; M47.816 Spondylosis without myelopathy or radiculopathy, lumbar region
CPT/HCPCS: 72100

== ENCOUNTER 2022-02-22 16:54 | Outpatient (CLI) | payer OTHER, SELFPAY ==
--- NOTE | ~2022-02-22 | MR_ITS ---
EXAMINATION: MR lumbar spine wo con DATE: 02/22/2022 17:30 INDICATION: Low back and leg pain. TECHNIQUE: Magnetic resonance imaging (MRI) of the lumbar spine was performed without intravenous con trast. Sequences included sagittal T2-weighted FSE, sagittal T2-weighted FS FSE, sagittal T1-weighted FSE, and axial T2-weighted FSE. COMPARISON: Lumbar spine radiographs dated 01/25/2022 FINDINGS: Sacralized L5 segment with 4 more cephalad nonrib-bearing lumbar segments L1-L4. Alignment is normal. Vertebral body heights are normal. Normal marrow signal. Annular fissure, disc desiccation and mild disc height loss at L4-L5. Remaining discs are normal. The conus medullaris terminates at L1. There is normal signal in the caudal spinal cord. Paravertebral soft tissues are unremarkable. The followin g disc levels are specifically discussed: T12-L1: The disc does not extend beyond the endplate margin. There is mild bilateral facet joint oste oarthritis. There is no neural foraminal stenosis. There is no central canal stenosis. L1-L2: The disc does not extend beyond the endplate margin. There is mild left and mild to moderate r ight facet joint osteoarthritis. There is no neural foraminal stenosis. There is no central canal araceli nosis. L2-L3: Disc is minimally bulging. There is mild left and mild to moderate right facet joint osteoarth ritis. There is mild bilateral neural foraminal stenosis. There is no central canal stenosis. L3-L4: Disc is mildly bulging. There is mild left and mild to moderate right facet joint osteoarthrit is. There is mild left and minimal right neural foraminal stenosis. There is no central canal stenosi s. L4-L5: Disc is bulging. There is mild to moderate bilateral facet joint osteoarthritis. There is mild left and mild to moderate right neural foraminal stenosis. There is no central canal stenosis. L5-S1: The disc does not extend beyond the endplate margin. There is mild bilateral facet joint osteo arthritis. There is no neural foraminal stenosis. There is no central canal stenosis. IMPRESSION: 1. Mild lower lumbar spondylosis. 2. Transitional bilaterally sacralized L5 segment. Reviewed, dictated and finalized at location A.
== END 2022-02-22 16:55 | disposition home or self-care (01) ==
LOC: ANHIMG 17:00
PROVIDERS: PCP Internal Medicine; Visit Provider Internal Medicine
DX: M79.659 Pain in unspecified thigh (principal); M54.10 Radiculopathy, site unspecified; M43.06 Spondylolysis, lumbar region; Q76.49 Other congenital malformations of spine, not associated with scoliosis
CPT/HCPCS: 72148

== ENCOUNTER 2022-03-14 18:00 | Outpatient (RCR) | payer OTHER, SELFPAY ==
[2021-12-31 08:51] VITALS: PULSE 78
[2021-12-31 09:20] VITALS: PULSE 78
== END 2022-03-14 18:17 | disposition home or self-care (01) ==
LOC: ANHCPREHAB 18:00
PROVIDERS: PCP Internal Medicine; Visit Provider Internal Medicine Cardiovascular Disease
DX: Z95.1 Presence of aortocoronary bypass graft (principal)
CPT/HCPCS: 93798

== ENCOUNTER 2022-09-11 14:40 | Emergency (ER) | payer OTHER, SELFPAY ==
[2022-09-11 14:49] VITALS: BP 166/76; PULSE 76; RESP 16; TEMP 36.6; O2SAT 100
--- NOTE | 2022-09-11 15:23 | PC.NURSE ---
Pt came to intake desk and reported that he was going to go home and lay down and hopefully that helps. Pt ambulatory out of ED lobby, A&Ox4, resp even non-labored.
== END 2022-09-11 15:49 | disposition left against medical advice (07) ==
PROVIDERS: PCP Internal Medicine
DX: M54.9 Dorsalgia, unspecified (principal)
CPT/HCPCS: 99199

== ENCOUNTER 2022-09-11 17:50 | Emergency (ER) | payer OTHER, SELFPAY ==
--- NOTE | ~2022-09-11 | CT_ITS ---
CT of the Abdomen and Pelvis: Indication: Abdominal pain Technique: 2.5 mm axial scans were obtained through the abdomen and pelvis following intravenous adm inistration of 100 cc of Omnipaque 350. Dose reduction technique was used on this scan by utilizing a utomated exposure control and iterative reconstruction technique. The dose-length product (DLP) was 1 323.39 mGy-cm. Findings: Scans through the lung bases demonstrate several subcentimeter tiny subpleural nodules. Diffuse fatty infiltration of liver noted. The spleen, pancreas, gallbladder, adrenals and right kidn ey are within normal limits. 2 mm nonobstructing left renal stone noted. No evidence of aortic aneury sm. No lymphadenopathy. No bowel obstruction or bowel wall thickening. There is no evidence to suggest acute appendicitis. Images through the pelvis were performed. Urinary bladder unremarkable. There is focal enlargement of the prostate gland which indents focally through the bladder base. Small fat-containing left inguina l hernia noted. No ascites. Impression: Diffuse fatty infiltration of the liver. Several subcentimeter subpleural nodules in the lung bases. These are nonspecific. According to Fleis chner Society criteria, for a low-risk patient, no further follow-up required. For a high-risk patien t, consider 12 month follow-up CT. 2 mm nonobstructing left renal stone. Focally enlarged prostate gland. Small fat-containing left inguinal hernia. Reviewed, dictated and finalized at [facility]. Impression: Diffuse fatty infiltration of the liver. Several subcentimeter subpleural nodules in the lung bases. These are nonspecif ic. According to Fleischner Society criteria, for a low-risk patient, no furthe r follow-up required. For a high-risk patient, consider 12 month follow-up CT. 2 mm nonobstructing left renal stone. Focally enlarged prostate gland. Small fat-containing left inguinal hernia.
[2022-09-11 18:03] VITALS: BP 174/74; PULSE 74; RESP 16; TEMP 37.1; O2SAT 99
[2022-09-11 19:28] VITALS: PULSE 74; RESP 18; TEMP 36.1; O2SAT 98
[2022-09-11 19:31] VITALS: BP 185/91
[2022-09-11] MEDS: SODIUM CHLORIDE 0.9% IV 1,000 ML 999 ML IV CONT (20:08)
[2022-09-11] MEDS: ONDANSETRON INJ 4 MG/2 ML VIAL IV PUSH (20:09)
[2022-09-11 20:13] LABS: Basophils Percent Auto 0.5 % (0.2-1.2); Eosinophils Percent Auto 0.7 % (0-4.4); Hematocrit 41.4 % (42.0-52.0); Hemoglobin 14.1 g/dL (14.0-18.0); Immature Granulocyte Absolute 0.02 K/mm3 (0.00-0.031); Immature Granulocyte Percent A 0.3 % (0-0.5); Lymphocytes Absolute Auto 1.31 K/mm3 (0.9-3.2); Lymphocytes Percent Auto 21.6 % (18.3-44.2); Mean Corpuscular HGB Conc 34.1 g/dl (32-36); Mean Corpuscular Hemoglobin 27.8 pg (26-34); Mean Corpuscular Volume 81.5 fl (80-100); Mean Platelet Volume 10.1 fl (7.4-10.4); Monocytes Absolute Auto 0.5 K/mm3 (0.1-0.6); Monocytes Percent Auto 7.4 % (2.6-8.5); Neutrophils Absolute Auto 4.2 K/mm3 (1.3-6.7); Neutrophils Percent Auto 69.5 % (45.5-73.1); Platelet Count Result 255 k/mm3 (150-375); Red Blood Count 5.08 M/mm3 (4.6-6.20); Red Cell Distribution Width 13.7 % (11.5-14.5); White Blood Count 6.1 K/mm3 (4.5-10.0)
[2022-09-11 20:23] LABS: Appearance Urine Clear (Clear); Bilirubin Urine Negative (Negative); Blood Urine Negative (Negative); Color Urine Yellow (Yellow); Glucose Urine UA Negative (Negative); Ketones Urine Negative (Negative); Leukocyte Esterase Ur Negative LEU/UL (Negative); Nitrate Urine Negative (Negative); Protein Urine Negative (Negative); Specific Grav Ur 1.025 (1.001-1.035); Urobilinogen Urine 0.2 mg/dL (<2.0); pH Urine 5.5 (5.0-9.0)
[2022-09-11 20:24] LABS: Add Urine Microscopic? NO
[2022-09-11 20:31] LABS: Alanine Aminotransferase 66 U/L (6-50); Alkaline Phosphatase 83 U/L (38-126); Anion Gap 12 mmol/L (8-16); Aspartate Amino Transferase 39 U/L (17-59); Bilirubin,Total 0.7 mg/dL (0.2-1.3); Blood Urea Nitrogen 21 mg/dL (9-20); Carbon Dioxide 18 mmol/L (22-30); Chloride 104 mmol/L (98-107); Estimated CRCL calculation 133 ml/min; Estimated Glomerular Filt Rate > 60; Glucose 130 mg/dL (65-110); Lipase 74 U/L (23-300); Potassium 4.2 mmol/L (3.4-5.0); Sodium 134 mmol/L (137-145)
[2022-09-11] MEDS: KETOROLAC 30 MG/ML VIAL (*BKC) IV PUSH (20:58)
--- NOTE | 2022-09-11 21:24 | PC.NURSE ---
Patient taken to CT via w/c at this time.
[2022-09-11 21:56] VITALS: BP 166/87; PULSE 74; RESP 18; TEMP 36.3; O2SAT 98
--- NOTE | 2022-09-11 21:58 | ED.BACK ---
HPI - Back Pain/Injury General Chief Complaint: Back Pain/Injury Stated Complaint: back pain Time Seen by Provider: 09/11/22 19:31 Source: RN notes reviewed History of Present Illness HPI Narrative: Patient presents emergency department from home for back pain. Patient states the pain began yesterday afternoon is located in the in the middle lower back states that the pain is described as achy in nature and does not radiate but seems to be worse with movement. He denies any trauma or injury but states that he does remember looking through his vinyl records and reaching over and he thinks that might been the cause of the pain states the pain became more severe today and was associated with nausea he also notes some mild upper abdominal pain. He denies falling or any direct trauma or injury denies any fevers or chills chest pain shortness of breath diarrhea or any other symptoms states he did go home and take an oxycodone today with some relief states the pain seems to be across the back and when he points to his back points to approximately the region of T10. He denies any bowel or bladder incontinence denies any numbness or weakness of the extremity Related Data Home Medications Medication Instructions Recorded Confirmed aspirin 81 mg tablet,delayed 81 mg PO DAILY 12/03/21 09/15/22 release (Adult Aspirin Regimen) omega 8-nqd-njg-fish oil 1,000 mg 1 cap PO BID 12/03/21 09/15/22 (120 mg-180 mg) capsule (Fish Oil) umeclidinium 62.5 mcg-vilanterol 1 inh inhalation DAILY 12/03/21 09/15/22 25 mcg/actuation powdr for inhalation (Anoro Ellipta) Allergies Allergy/AdvReac Type Severity Reaction Status Date / Time codeine AdvReac Fever Verified 09/15/22 08:55 Review of Systems Review of Systems: Gen.: Denies fevers or chills ENT: Denies congestion Respiratory: Denies shortness of breath or cough CV: Denies chest pain or palpitations GI: Reports upper abdominal pain and nausea denies vomiting or diarrhea denies burning, urgency, frequency or hematuria Musculoskeletal: See HPI Neuro: Denies numbness, tingling, weakness or focal weakness Skin: Denies rash Except as documented, all other systems reviewed and negative PMFSH Past Medical History Medical History CAD (coronary artery disease), autologous vein bypass graft COPD with emphysema Dyslipidemia Gastroesophageal reflux disease Osteomyelitis Right arm as a child. Tobacco abuse Surgical History Surgical History History of surgery on arm Patient reportedly had surgery on his right arm related to osteomyelitis (or possible septic arthritis) which reportedly stemmed from strep throat and rheumatic fever. Hx of eye surgery 1969' Family History Family History Sibling Diabetes mellitus Father Diabetes mellitus Dementia Myocardial infarction Mother Lung cancer Social History Social History Social History: Surrogate decision maker: Vipin Prakash, keyew. Code status: Full code. Smoking packs per day: 2 Smoking cigarettes per day: 40.0 Years smoked: 37 Smoking pack-years: 74.00 Smoking status: Former smoker Tobacco type: cigarettes Smoking end date: 11/12/21 Alcohol intake: former Drinks per week: 1 Alcohol use details: Infrequent alcohol use. Substance use: never Substance use type: does not use Lack of Transportation: No Lack of Food: Never True Current Housing: I Have Housing Concerned About Future Housing: Decline to Answer Difficulty Paying Gas/Electric Bills: Decline to Answer Difficulty Paying for Meds: Decline to Answer Currently Unemployed: Decline to Answer Education: Decline to Answer Difficulty w/ Childcare or Family Care: Decline to Answer Living arrangements: with family Occupat
== END 2022-09-11 23:17 | disposition home or self-care (01) ==
PROVIDERS: Emergency Provider Emergency Medicine; PCP Internal Medicine
DX: M54.50 Low back pain, unspecified (principal); I25.10 Atherosclerotic heart disease of native coronary artery without angina pectoris; J43.9 Emphysema, unspecified; E78.5 Hyperlipidemia, unspecified; Z79.82 Long term (current) use of aspirin; Z87.891 Personal history of nicotine dependence
CPT/HCPCS: 36415; 74177; 80053; 81003; 83690; 85025; 96361; 96374; 96375; 99284; J1885; J2405; J7030; Q9967

== ENCOUNTER 2023-02-01 08:15 | Outpatient (RCR) | payer OTHER, SELFPAY ==
[2022-11-09 08:16] VITALS: BMI 32.0
[2022-11-09 08:19] VITALS: BMI 32.0
[2022-12-07 08:14] VITALS: BMI 32.3
[2022-12-07 08:15] VITALS: BMI 32.3
[2023-02-01 08:17] VITALS: BMI 32.3
[2023-02-01 08:18] VITALS: BMI 32.3
== END 2023-02-01 16:18 | disposition home or self-care (01) ==
LOC: ANHDMC 08:15
PROVIDERS: PCP Internal Medicine; Referring Provider Internal Medicine Cardiovascular Disease; Visit Provider Nurse Practitioner
DX: E78.5 Hyperlipidemia, unspecified (principal); Z68.32 Body mass index [BMI] 32.0-32.9, adult; Z71.3 Dietary counseling and surveillance
CPT/HCPCS: 97802; 97803

== ENCOUNTER 2023-05-09 15:28 | Outpatient (CLI) | payer OTHER, SELFPAY ==
[2023-05-09 18:15] LABS: Anion Gap 13 mmol/L (8-16); Blood Urea Nitrogen 16 mg/dL (9-20); Calcium 9.7 mg/dL (8.4-10.2); Carbon Dioxide 22 mmol/L (22-30); Chloride 101 mmol/L (98-107); Estimated Glomerular Filt Rate > 60; Glucose 104 mg/dL (65-110); Potassium 3.5 mmol/L (3.4-5.0); Sodium 136 mmol/L (137-145)
== END 2023-05-09 15:29 | disposition home or self-care (01) ==
PROVIDERS: PCP Nurse Practitioner; Visit Provider Anesthesiology
DX: Z01.818 Encounter for other preprocedural examination (principal); I10 Essential (primary) hypertension
CPT/HCPCS: 36415; 80048

== ENCOUNTER 2023-05-15 00:56 | Day surgery (SDC) | payer OTHER, SELFPAY ==
[2023-05-09 14:53] VITALS: BMI 33.7
--- NOTE | 2023-05-09 15:03 | PC.NURSE ---
Report to the Outpatient Waiting Room, entrance under the green pavilion located off [facility], at time _1100_ on date _05/15/23. Planned Procedure Time: _1300_. Time changes happen often and if your time is changed the preop area will call you the afternoon before. - You and your visitor will be asked to self-screen and do not enter if you have any COVID symptoms. - A mask is optional within the hospital at this time. Patients may have clear liquids (water, carbonated beverages, clear teas, apple juice) until 8 hours prior to surgery with a maximum of 20 ounces. - No food from midnight until time of surgery - Infants may have breast milk until 4 hours before surgery, formula 6 hours prior to surgery. - Children will be allowed to drink immediately following surgery. If applicable, please bring a bottle or sippy cup to assist with drinking. Juice, water, soda, and popsicles are readily available. For infants on formula, please bring formula the day of surgery. Pacifiers are allowed. Take the following medications with a SIP of water the morning of surgery: ___METOPROLOL DO NOT STOP ANY OF YOUR OTHER PRESCRIPTION MEDICATIONS PRIOR TO SURGERY ?EXCEPT THE FOLLOWING Medications to discontinue per physician FISH OIL 3 DAYS PRIOR, ASK SURGEON ABOUT STOPPING ASPIRIN Date to take last dose Please no make-up, nail malawian, hairspray, perfume, deodorant, or body powder the day of surgery. No jewelry (including any body piercings) or valuables the day of surgery, leave them at home. Please take a shower or bath the night before, or the morning of, surgery with an antibacterial soap. Wear comfortable, loose fitting clothing. Children are encouraged to wear pajamas. - Jewelry must be removed prior to entering the operating room. Rings and piercings that are not removed may be cut off. - The hospital will not accept responsibility for valuables. - Please leave all valuables, including medications, at home the day of surgery. If you are going home after surgery, a licensed belly dump driver must drive you home. - NO public transportation without another adult if you receive anesthesia. - We recommend that an adult stay with you for 24 hours following discharge. - We also recommend that you do not drive, make important decision, drink alcoholic beverages, or take any drugs that were not prescribed by your health care provider for at least 24 hours after your discharge time. For Pediatric surgeries, we recommend two adults accompany the child home. Follow any additional instructions given to you from your surgeon. If you or anyone in your household have experienced Covid symptoms in the past week, please notify your surgeon or the nurse liaison at the phone number below for possible testing. Telephone instructions given to _PATIENT_and asked if any additional questions and then verbalized understanding. Patient advised to call surgeon office or pre surgery nurse liaison [phone] if any additional questions.
--- NOTE | 2023-05-15 08:46 | PM.HPGS ---
History of Present Illness History of Present Illness Chief complaint: Trigger Finger Right Hand Narrative: Patient seen and examined in pre-operative holding area. No interval change in medical history or symptoms. Continues to desire to proceed with right small finger a1 precious release . Reviewed procedure, post-op expectations and risks including but not limited to bleeding, infection, injury to tendon/nerve/vessel, decreased hand function, stiffness, RSD, no change or worsening of symptoms. Reviewed possible use of assistants and their participation in care. Patient stated understanding and signed the consent form wishing to proceed. ROS: WNL except as previously noted Physical Exam: CV: RRR Pulm: CTAB Extremities: no change from previous [facility] Past Medical History Medical History CAD (coronary artery disease), autologous vein bypass graft COPD with emphysema Dyslipidemia Gastroesophageal reflux disease Osteomyelitis Right arm as a child. Tobacco abuse Surgical History Surgical History (Updated 05/15/23 @ 12:07 by Sherwin Castrejon MD) History of surgery on arm Patient reportedly had surgery on his right arm related to osteomyelitis (or possible septic arthritis) which reportedly stemmed from strep throat and rheumatic fever. Hx of CABG Hx of eye surgery 1969' Family History Family History Sibling Diabetes mellitus Father Diabetes mellitus Dementia Myocardial infarction Mother Lung cancer Social History Social History Social History: Surrogate decision maker: Vipin Olinda, nephew. Code status: Full code. 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 Spiritual care concerns: No Meds Home Medications and Allergies Home Medications Medication Instructions Recorded Confirmed Type aspirin 81 mg tablet,delayed 81 mg PO DAILY 12/03/21 05/15/23 History release (Adult Aspirin Regimen) omega 2-zph-aka-fish oil 1,000 mg 1 cap PO BID 12/03/21 05/09/23 History (120 mg-180 mg) capsule (Fish Oil) esomeprazole magnesium 40 mg 40 mg PO DAILY #30 caps 08/11/22 05/09/23 Rx capsule,delayed release metoprolol tartrate 25 mg tablet See Rx Instructions .Route 09/05/22 05/15/23 Rx .COMPLEX #180 tabs nitroglycerin 0.4 mg sublingual 0.4 mg sublingual Q5-15M PRN Chest 09/05/22 05/09/23 Rx tablet (Nitrostat) Pain #30 tabs hydrochlorothiazide 12.5 mg capsule See Rx Instructions .Route 02/17/23 05/09/23 Rx .COMPLEX #90 caps albuterol sulfate 90 mcg/actuation 2 puff inhalation QID PRN 04/21/23 05/09/23 Rx aerosol inhaler Shortness Of Breath #8.5 grams suvorexant 20 mg tablet (Belsomra) 20 mg PO QHS PRN sleep #9 tabs 04/21/23 05/09/23 Rx atorvastatin 40 mg tablet See Rx Instructions .Route 05/05/23 05/09/23 Rx .COMPLEX #90 tabs Allergies Allergy/AdvReac Type Severity Reaction Status Date / Time codeine AdvReac Fever Verified
--- NOTE | 2023-05-15 08:48 | P.OP_ITS ---
Procedure Note - Detailed Date of Procedure 05/15/23 Pre-op Diagnosis Trigger Finger Right small finger Post-op Diagnosis Same Procedure Performed right small finger a1 precious release Surgeon Heidy Charles MD Anesthesia MAC Description of Procedure pt. seen in pre-op area, consented and marked PROCEDURE IN DETAIL: The patient was taken back to OR on the stretcher in supine position. Time out performed with anesthesia, surgeon and staff agreeing on patient's name site and surgery to be performed SCDs were placed on the lower extremities and inflated A tourniquet was placed on right upper extremity and antibiotics given IV After anesthesia administered sedation I injected {3}cc 1%lido and 0.5% ilya awilda plain at the operative site The?right upper extremity?was prepped and draped in sterile fashion the??right upper extremity was??exsanguinated with Esmarch bandage and tourniquet inflated to 250mmHg I next proceeded with making a longitudinal incision over the right small finger a1 precious through skin and dermis with a 15 blade scalpel. Littler scissors were used to spread down to the a1 precious. The A1 precious was idenitifed and incised with 15 blade scalpel initially then littler scissors were used to spread above it and below it proximally and distally and completed transection. Ragnell retractors were used to withdraw the fds and fdp tendons for inspection. They were free of masses or synovitis and gliding smoothly in the sheath without crepitus or triggering. The tendons were allowed to retract back into the wound and I lorne irrigated with normal saline and closure with 4-0 chromic. The incision was covered with xeroform, 4x4s, opal, and and an jayleen bandage after the tourniquet was let down noting the finger was warm and well perfused.? Patient awaken from anesthesia and transferred to recovery in stable condition Complications - none EBL- 0cc Disposition - home in stable conditions AM Billing Surgery - Charge Forward: Surgery Billing ([id number] )
[2023-05-15 11:56] VITALS: BP 155/81; PULSE 67; RESP 16; TEMP 36.4; O2SAT 100
[2023-05-15] MEDS: LACTATED RINGERS 1,000 ML 30 ML IV CONT (12:00)
--- NOTE | 2023-05-15 12:06 | WPDANESEPPF ---
Anes - Initial Pre Proc Eval Procedure: Operation Date: 05/15/23 13:00 Proposed Procedures p Right Small Finger A-1 Butch Release - Heidy Charles MD Date/Time: 05/15/23 12:06 Surgeon: Heidy Charles MD Pre Op Diagnosis: Trigger Finger Right Hand Patient Data Age: 53 Gender: M Height: 1.83 m Weight: 111.6 kg Last Vital Signs Temp 36.4 C L 05/15/23 11:56 Pulse 67 05/15/23 11:56 Resp 16 05/15/23 11:56 BP 155/81 H 05/15/23 11:56 Pulse Ox 100 05/15/23 11:56 O2 Del Method Room Air 05/15/23 11:56 Allergies Allergy/AdvReac Type Severity Reaction Status Date / Time codeine AdvReac Fever Verified 05/15/23 11:54 Home Medications Medication Instructions Recorded Confirmed Type aspirin 81 mg tablet,delayed 81 mg PO DAILY 12/03/21 05/15/23 History release (Adult Aspirin Regimen) omega 5-mdy-bpu-fish oil 1,000 mg 1 cap PO BID 12/03/21 05/09/23 History (120 mg-180 mg) capsule (Fish Oil) esomeprazole magnesium 40 mg 40 mg PO DAILY #30 caps 08/11/22 05/09/23 Rx capsule,delayed release metoprolol tartrate 25 mg tablet See Rx Instructions .Route 09/05/22 05/15/23 Rx .COMPLEX #180 tabs nitroglycerin 0.4 mg sublingual 0.4 mg sublingual Q5-15M PRN Chest 09/05/22 05/09/23 Rx tablet (Nitrostat) Pain #30 tabs hydrochlorothiazide 12.5 mg capsule See Rx Instructions .Route 02/17/23 05/09/23 Rx .COMPLEX #90 caps albuterol sulfate 90 mcg/actuation 2 puff inhalation QID PRN 04/21/23 05/09/23 Rx aerosol inhaler Shortness Of Breath #8.5 grams suvorexant 20 mg tablet (Belsomra) 20 mg PO QHS PRN sleep #9 tabs 04/21/23 05/09/23 Rx atorvastatin 40 mg tablet See Rx Instructions .Route 11/03/23 11/07/23 Rx .COMPLEX #90 tabs Patient hx anesthesia problems: none Family hx anesthesia problems: none Results Review: All pre-operative results and documents have been reviewed as part of the pre-operative evaluation. [facility] Past Medical History Medical History CAD (coronary artery disease), autologous vein bypass graft COPD with emphysema Dyslipidemia Gastroesophageal reflux disease Osteomyelitis Right arm as a child. Tobacco abuse Surgical History Surgical History (Updated 05/15/23 @ 12:07 by Sherwin Castrejon MD) History of surgery on arm Patient reportedly had surgery on his right arm related to osteomyelitis (or possible septic arthritis) which reportedly stemmed from strep throat and rheumatic fever. Hx of CABG Hx of eye surgery Family History Family History Sibling Diabetes mellitus Father Diabetes mellitus Dementia Myocardial infarction Mother Lung cancer Social History Social History Social History: Surrogate decision maker: key W[employer]. Code status: Full code. 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 Spiritual care concerns: No Anes - Eval Final PreProce
[2023-05-15] MEDS: ceFAZolin 2 GM/D5W 50 ML 2 GM/50 ML BAG IVPB (13:01)
[2023-05-15] MEDS: LIDOCAINE HCL 1% LOCAL INJ 10 ML VIAL INFILTRATE (13:14)
[2023-05-15 13:23] VITALS: BP 136/89; PULSE 76; RESP 16; O2SAT 99
[2023-05-15 13:50] VITALS: BP 158/84; PULSE 70; RESP 18
[2023-05-15 14:20] VITALS: BP 151/89; PULSE 64; RESP 20
== END 2023-05-15 14:30 | disposition home or self-care (01) ==
PROVIDERS: PCP Nurse Practitioner; Visit Provider Plastic Surgery
PROC: (CPT 26055; principal; 2023-05-15 13:00)
DX: M65.351 Trigger finger, right little finger (principal); I25.10 Atherosclerotic heart disease of native coronary artery without angina pectoris; J43.9 Emphysema, unspecified; E78.5 Hyperlipidemia, unspecified; K21.9 Gastro-esophageal reflux disease without esophagitis; Z95.1 Presence of aortocoronary bypass graft; Z87.891 Personal history of nicotine dependence; Z79.82 Long term (current) use of aspirin; Z79.51 Long term (current) use of inhaled steroids
CPT/HCPCS: 26055; 36415; 80048; A9270; J0690; J2250; J2704; J3010; J7120

== ENCOUNTER 2023-08-27 00:21 | Emergency (ER) | payer OTHER, SELFPAY ==
[2023-08-27] VITALS (34 sets, daily range): BP systolic 132–160; BP diastolic 63–89; PULSE 68–84; RESP 13–21; TEMP 36.3; O2SAT 97–100
--- NOTE | ~2023-08-27 | XR_ITS ---
XR chest 2V 08/27/2023 01:09 Indication: Shortness of breath. Chest pain. Procedure: 2 view chest Comparison: 12/15/2021 Findings: Chronic unchanged left basilar atelectasis/scarring. Status post median sternotomy for CABG . Heart size normal. No focal air space disease, pulmonary edema, pleural effusion or suspected pneum othorax. There are healed right rib fractures. Impression: 1: No acute cardiopulmonary disease. Reviewed, dictated and finalized at location A. STANT BOILER OPERATOR Impression: 1: No acute cardiopulmonary disease.
--- NOTE | 2023-08-27 00:32 | ECG_ITS ---
Measurements Intervals [place] Rate: 75 P: 37 [place]: 180 QRS: -19 QRSD: 113 T: 31 QT: 386 QTc: 432 Interpretive Statements SINUS RHYTHM NONSPECIFIC iNTRAVENTRICULAR CONDUCTION DELAY NONSPECIFIC ST ABNORMALITY MINIMAL VOLTAGE CRITERIA FOR LVH, CONSIDER NORMAL VARIANT BORDERLINE ECG COMPARED TO ECG 12/15/2021 09:27:44 INTRAVENTRICULAR CONDUCTION DELAY NOW PRESENT Electronically Signed On 08-27-2023 18:18:40 RAILROAD OPERATOR by Kuldeep Gorman M.D.
[2023-08-27 00:42] LABS: Basophils Absolute Auto 0.1 K/mm3 (0.0-0.1); Basophils Percent Auto 0.9 % (0.2-1.2); Eosinophils Absolute Auto 0.2 K/mm3 (0-0.3); Eosinophils Percent Auto 2.5 % (0-4.4); Hematocrit 44.1 % (42.0-52.0); Hemoglobin 14.5 g/dL (14.0-18.0); Immature Granulocyte Absolute 0.05 K/mm3 (0.00-0.031); Immature Granulocyte Percent A 0.8 % (0-0.5); Lymphocytes Absolute Auto 2.03 K/mm3 (0.9-3.2); Lymphocytes Percent Auto 31.6 % (18.3-44.2); Mean Corpuscular HGB Conc 32.9 g/dl (32-36); Mean Corpuscular Hemoglobin 27.7 pg (26-34); Mean Corpuscular Volume 84.2 fl (80-100); Mean Platelet Volume 10.8 fl (7.4-10.4); Monocytes Absolute Auto 0.4 K/mm3 (0.1-0.6); Monocytes Percent Auto 6.7 % (2.6-8.5); Neutrophils Absolute Auto 3.7 K/mm3 (1.3-6.7); Neutrophils Percent Auto 57.5 % (45.5-73.1); Platelet Count Result 240 k/mm3 (150-375); Red Blood Count 5.24 M/mm3 (4.6-6.20); Red Cell Distribution Width 13.7 % (11.5-14.5); White Blood Count 6.4 K/mm3 (4.5-10.0)
[2023-08-27 00:53] LABS: INR 0.9; Partial Thromboplastin Time 22.7 SECONDS (22.3-36.8); Prothrombin Time 12.9 Seconds (11.1-14.7)
[2023-08-27 01:00] LABS: Alanine Aminotransferase 95 U/L (6-50); Albumin Level 4.6 g/dL (3.5-5.1); Alkaline Phosphatase 84 U/L (38-126); Anion Gap 15 mmol/L (8-16); Aspartate Amino Transferase 71 U/L (17-59); Bilirubin,Total 0.7 mg/dL (0.2-1.3); Blood Urea Nitrogen 9 mg/dL (9-20); Calcium 9.6 mg/dL (8.4-10.2); Carbon Dioxide 16 mmol/L (22-30); Chloride 104 mmol/L (98-107); Estimated CRCL calculation 107 ml/min; Estimated Glomerular Filt Rate > 60; Glucose 200 mg/dL (65-110); Lipase 85 U/L (23-300); Potassium 3.5 mmol/L (3.4-5.0); Sodium 135 mmol/L (137-145)
[2023-08-27 01:11] LABS: Troponin I < 0.012 ng/mL (0.000-0.034)
--- NOTE | 2023-08-27 01:42 | ED.GENADULT ---
HPI - General Adult General Chief complaint: Chest Pain Stated complaint: CP RADIATING TO NECK & ARM, TOOK OWN NTG W/RELIEF. Time Seen by Provider: 08/27/23 00:35 History of Present Illness HPI narrative: this is a 53-year-old male with history of quadruple bypass presenting for chest discomfort. Patient was getting ready for bed when he developed a pressure in the center his chest that radiated both shoulders. Was 4 out 10 intensity, constant. He never had pain like that before and does not related to previous heart attacks. He took a nitro with complete resolution of his symptoms. After take the nitro he did get slightly dizzy and developed a headache. At this time the patient is asymptomatic and resting comfortably. Related Data Home Medications Medication Instructions Recorded Confirmed aspirin 81 mg tablet,delayed 81 mg PO DAILY 12/03/21 05/23/23 release (Adult Aspirin Regimen) omega 2-bcy-zpm-fish oil 1,000 mg 1 cap PO BID 12/03/21 05/23/23 (120 mg-180 mg) capsule (Fish Oil) Allergies Allergy/AdvReac Type Severity Reaction Status Date / Time codeine AdvReac Fever Verified 08/27/23 00:33 [facility] Past Medical History Medical History CAD (coronary artery disease), autologous vein bypass graft COPD with emphysema Dyslipidemia Gastroesophageal reflux disease Osteomyelitis Right arm as a child. Tobacco abuse Surgical History Surgical History History of surgery on arm Patient reportedly had surgery on his right arm related to osteomyelitis (or possible septic arthritis) which reportedly stemmed from strep throat and rheumatic fever. Hx of CABG Hx of eye surgery Family History Family History Sibling Diabetes mellitus Father Diabetes mellitus Dementia Myocardial infarction Mother Lung cancer Social History Social History Social History: Surrogate decision maker: Vipin Prakash, nephew. Code status: Full code. 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 Spiritual care concerns: No Exam Narrative: APPEARANCE: No apparent distress. Head: atraumatic. EYES: EOMI, NOSE: Atraumatic NECK: Trachea midline RESPIRATORY: No increased rate of breathing CTAB CARDIOVASCULAR: RRR, no peripheral edema ABDOMINAL: Non-distended soft nontender MUSCULOSKELETAl: No obvious deformities NEURO: Alert. Moving 4/4 extremities SKIN:: Warm, dry. Normal color PSYCHIATRIC: Normal affect Course Vital Signs Vital signs: Vital Signs Temperature 97.3 F L 08/27/23 00:21 Pulse Rate 81 08/27/23 00:21 Respiratory Rate 20 08/27/23 00:21 Blood Pressure 160/78 H 08/27/23 00:21 Pulse Oximetry 99 08/27/23 00:21 Oxygen Delivery Room Air 08/27/23 00:21 Temperature 97.3 F L 08/27/23 00:21 Pulse Rate 75 08/27/23 05:00 Respiratory Rate 18 08/27/23 05:00 Bloo
--- NOTE | 2023-08-27 03:56 | ECG_ITS ---
Measurements Intervals [place] Rate: 69 P: 22 [place]: 189 QRS: -17 QRSD: 104 T: 9 QT: 411 QTc: 442 Interpretive Statements SINUS RHYTHM MINIMAL VOLTAGE CRITERIA FOR LVH, CONSIDER NORMAL VARIANT [MEETS CRITERIA IN ONE OF: R(aVL), S(V1), R(V5), R(V5/V6)+S(V1)] BORDERLINE ECG COMPARED TO ECG 08/27/2023 00:29:51 NO SIGNIFICANT CHANGES Electronically Signed On 08-27-2023 18:23:47 SHEETER WAXER OPERATOR by Kuldeep Gorman M.D.
[2023-08-27 04:25] LABS: Troponin I < 0.012 ng/mL (0.000-0.034)
== END 2023-08-27 05:59 | disposition home or self-care (01) ==
PROVIDERS: Emergency Provider Emergency Medicine; PCP Nurse Practitioner
DX: R07.89 Other chest pain (principal); I25.10 Atherosclerotic heart disease of native coronary artery without angina pectoris; J43.9 Emphysema, unspecified; E78.5 Hyperlipidemia, unspecified; K21.9 Gastro-esophageal reflux disease without esophagitis; Z95.1 Presence of aortocoronary bypass graft; Z87.891 Personal history of nicotine dependence; Z79.82 Long term (current) use of aspirin; R94.31 Abnormal electrocardiogram [ECG] [EKG]
CPT/HCPCS: 36415; 71046; 80053; 83690; 84484; 85025; 85610; 85730; 93005; 99284

== ENCOUNTER 2024-02-15 08:03 | Outpatient (CLI) | payer OTHER, SELFPAY ==
--- NOTE | 2024-02-15 08:18 | EST_ITS ---
Patient Info Name: Chong Prakash Age: 54 years : 1970 Gender: Male Ht: 71 in Wt: 250 lbs BSA: 2.42 m2 Exam Date: 02/15/2024 8:28 AM Exam Location: [facility] Patient Status: Outpatient Admit Date: 02/15/2024 Staff Ordering Physician: Shane Espinosa DO Attending Provider: Shane Espinosa DO Exercise Technologist: Marychuy Rowland CT Exercise Physician: Shane Espinosa DO Exam Type: CA stress test treadmill Study Info A treadmill exercise stress test was performed. Summary 1. 1. Negative Heath exercise stress test for ischemic ST changes by ECG criteria. However, patient achieved only 79% MPHR for age group which reduces sensitivity of the test. 2. 2. Reduced functional capacity, achieving 7 METs of workload. 3. 3. Appropriate HR response to exercise. 4. 4. Appropriate HR recovery at 1 minute post exercise. 5. 5. Hypertensive response to exercise. 6. 6. No imaging with stress testing. 7. 7. Patient informed of the above results. Protocol: Heath Stress ECG Details Stage: REST Duration (min): 1 min : 47 sec Speed (mph): 0.0 Grade (%): 0 HR (bpm): 63 SBP (mmHg): 134 DBP (mmHg): 82 METS: --- Stage: REST Duration (min): 6 min : 7 sec Speed (mph): 0.0 Grade (%): 0 HR (bpm): 63 SBP (mmHg): 134 DBP (mmHg): 82 METS: --- Stage: STAGE 1 Duration (min): 1 min : 0 sec Speed (mph): 1.7 Grade (%): 10 HR (bpm): 82 SBP (mmHg): 134 DBP (mmHg): 82 METS: --- Stage: STAGE 1 Duration (min): 2 min : 0 sec Speed (mph): 1.7 Grade (%): 10 HR (bpm): 86 SBP (mmHg): 134 DBP (mmHg): 82 METS: --- Stage: STAGE 1 Duration (min): 3 min : 0 sec Speed (mph): 1.7 Grade (%): 10 HR (bpm): 100 SBP (mmHg): 134 DBP (mmHg): 82 METS: --- Stage: STAGE 2 Duration (min): 1 min : 0 sec Speed (mph): 2.5 Grade (%): 12 HR (bpm): 111 SBP (mmHg): 182 DBP (mmHg): 75 METS: --- Stage: STAGE 2 Duration (min): 2 min : 0 sec Speed (mph): 2.5 Grade (%): 12 HR (bpm): 122 SBP (mmHg): 182 DBP (mmHg): 75 METS: --- Stage: STAGE 2 Duration (min): 3 min : 0 sec Speed (mph): 2.5 Grade (%): 12 HR (bpm): 130 SBP (mmHg): 236 DBP (mmHg): 103 METS: --- Stage: STAGE 3 Duration (min): 0 min : 1 sec Speed (mph): 3.4 Grade (%): 14 HR (bpm): 130 SBP (mmHg): 236 DBP (mmHg): 103 METS: --- Stage: RECOVERY Duration (min): 0 min : 58 sec Speed (mph): 0.0 Grade (%): 0 HR (bpm): 122 SBP (mmHg): 227 DBP (mmHg): 97 METS: --- Stage: RECOVERY Duration (min): 1 min : 58 sec Speed (mph): 0.0 Grade (%): 0 HR (bpm): 113 SBP (mmHg): 227 DBP (mmHg): 97 METS: --- Stage: RECOVERY Duration (min): 2 min : 58 sec Speed (mph): 0.0 Grade (%): 0 HR (bpm): 107 SBP (mmHg): 249 DBP (mmHg): 88 METS: --- Stage: RECOVERY Duration (min): 3 min : 58 sec Speed (mph): 0.0 Grade (%): 0 HR (bpm): 99 SBP (mmHg): 249 DBP (mmHg): 8
== END 2024-02-15 08:04 | disposition home or self-care (01) ==
PROVIDERS: PCP Nurse Practitioner; Visit Provider Internal Medicine Cardiovascular Disease
DX: R07.9 Chest pain, unspecified (principal)
CPT/HCPCS: 93017